=== PATIENT | male | born 1980 | race Caucasian/White ===

== ENCOUNTER 2019-06-19 04:50 | Emergency (ER) | payer BC ==
--- NOTE | 2019-06-19 05:13 | EDM.PDOC ---
ED HPI GENERAL MEDICAL PROBLEM - General Chief Complaint: ENT Problem Stated Complaint: TOOTH PAIN Time Seen by Provider: 06/19/19 04:51 Source of Information: Reports: Patient History Limitations: Reports: No Limitations - History of Present Illness INITIAL COMMENTS - FREE TEXT/NARRATIVE: Is a 38-year-old male. He had a tooth extraction of the #6 tooth. He states last night he felt a pop in that area he may have a little bit of drainage but no bleeding. The pain in his jaw and his right cheek is gotten worse and he went to the walk-in clinic and they placed him on amoxicillin he states he's Jhonny started taking it. He's been trying some Tylenol or ibuprofen as needed for pain but is not helping so he comes to the ER for evaluation. He denies any fever or chills he denies any other acute symptoms. He might have some minimal swelling of that right cheek but there is no erythema noted. Treatments UNDERWRITING MANAGER: Reports: Acetaminophen, NSAIDS Right Upper Jaw Pain Score (Numeric/FACES): 10 - Related Data Allergies Allergy/AdvReac Type Severity Reaction Status Date / Time cefaclor [From [facility]] Allergy Rash Verified 06/19/19 04:56 Home Meds: Home Meds Amoxicillin 500 mg PO 06/19/19 [History] traMADol [Ultram] 50 mg PO Q6H PRN #10 tab 06/19/19 [Rx] Past Medical History - Past Health History Medical/Surgical History: Denies Medical/Surgical History Social & Family History - Tobacco Use Smoking Status *Q: Unknown Ever Smoked ED ROS ENT - Review of Systems Review Of Systems: See Below Constitutional: Denies: Fever, Chills HEENT: Reports: Dental Pain Respiratory: Reports: No Symptoms Cardiovascular: Reports: No Symptoms Endocrine: Reports: No Symptoms GI/Abdominal: Reports: No Symptoms : Reports: No Symptoms Musculoskeletal: Reports: No Symptoms Skin: Reports: No Symptoms Neurological: Reports: No Symptoms Hematologic/Lymphatic: Reports: No Symptoms ED EXAM, ENT - Physical Exam Exam: See Below Exam Limited By: No Limitations General Appearance: Alert, WD/WN, No Apparent Distress Eye Exam: Bilateral Eye: Normal Inspection Ears: Normal External Exam Nose: Normal Inspection Mouth/Throat: Other (#6 to his but extracted, the gum does not appear to be inflamed or swollen, he has some mild tenderness of the right cheek. It is not significantly swollen, there is no significant erythema, no drainage is noted on inspection.) Head: Normocephalic Neck: Supple Respiratory/Chest: No Respiratory Distress Back: Full Range of Motion Extremities: Normal Inspection, Normal Range of Motion Neurological: Alert, Oriented Psychiatric: Normal Affect, Normal Mood Skin: Warm, Dry Course - Vital Signs Last Recorded V/S: Last Vital Signs Temp 97.1 F 06/19/19 04:56 Pulse 50 L 06/19/19 04:56 Resp 16 06/19/19 04:56 BP 141/91 H 06/19/19 04:56 Pulse Ox 100 06/19/19 04:56 Departure - Departure Time of Disposition: 05:13 Disposition: Home, Self-Care 01 Condition: Fair Clinical Impression: Pain, dental, Dental infection History of tooth extraction Qualifiers: Tooth loss class: unspecified tooth loss Qualified Code(s): K08.409 - Partial loss of teeth, unspecified cause, unspecified class - Discharge Information *PRESCRIPTION DRUG MONITORING PROGRAM REVIEWED*: Not Applicable *COPY OF PRESCRIPTION DRUG MONITORING REPORT IN PATIENT CHRISTIAN: Not Applicable Prescriptions: traMADol [Ultram] 50 mg PO Q6H PRN #10 tab PRN Reason: Pain Instructions: Dental Extraction, [id number] Referrals: Scar Quick MD [Primary Care Provider] - Additional Instructions: Continue with the antibiotics until they're finished, use warm soaks to the cheek to help with the soreness, take the tramadol as needed for pain, follow- up with your dentist on Friday if you continue to have symptoms, return to the ER if needed
[2019-06-19] MEDS ORDERED: Ketorolac 60 MG/2 ML SDV IM ONE (05:15)
== END 2019-06-19 05:23 | disposition home or self-care (01) ==
LOC: JD.ED 04:50
DX: K04.7 Periapical abscess without sinus (principal); K08.409 Partial loss of teeth, unspecified cause, unspecified class; Z88.1 Allergy status to other antibiotic agents
CPT/HCPCS: 96372; 99282; J1885; 99283

== ENCOUNTER 2020-07-01 18:18 | Emergency (ER) | payer BC ==
--- NOTE | 2020-07-01 19:24 | EDM.PDOC ---
ED HPI GENERAL MEDICAL PROBLEM - General Chief Complaint: Respiratory Problem Time Seen by Provider: 07/01/20 19:02 Source of Information: Reports: Patient History Limitations: Reports: No Limitations - History of Present Illness INITIAL COMMENTS - FREE TEXT/NARRATIVE: This is a 39-year-old male. He has 3 work partners 2 of them have tested positive for Covid and one is waiting for their test to come back and has quarantined himself. The patient states that over the last 2 to 3 days he has been having shortness of breath, heaviness or tightness in his chest when he breathes, fatigue, productive cough, congestion, and myalgias. He has had no significant nausea vomiting or diarrhea. Comes to the ER because of the fatigue and shortness of breath. His pulse ox on room air when I go into the room is 98%. He does not appear to be in any distress. He does state he has periodic chills and fever but he never has taken his temperature. Generalized Pain Score (Numeric/FACES): 5 - Related Data Allergies Allergy/AdvReac Type Severity Reaction Status Date / Time cefaclor [From [facility]] Allergy Rash Verified 07/01/20 18:43 Home Meds: Home Meds . [No Known Home Meds] 07/01/20 [History] Past Medical History - Past Health History Medical/Surgical History: Denies Medical/Surgical History Social & Family History - Tobacco Use Tobacco Use Status *Q: Former Tobacco User Used Tobacco, but Quit: Yes Month/Year Tobacco Last Used: 12/2019 - Caffeine Use Caffeine Use: Reports: Energy Drinks - Recreational Drug Use Recreational Drug Use: No ED ROS GENERAL - Review of Systems Review Of Systems: See Below Constitutional: Reports: Fever, Chills, Fatigue HEENT: Reports: Rhinitis. Denies: Throat Pain, Throat Swelling Respiratory: Reports: Shortness of Breath, Cough, Sputum. Denies: Wheezing Cardiovascular: Denies: Chest Pain Endocrine: Reports: No Symptoms GI/Abdominal: Denies: Abdominal Pain, Diarrhea, Nausea, Vomiting : Reports: No Symptoms Musculoskeletal: Reports: Other (Myalgias) Skin: Reports: No Symptoms Neurological: Reports: No Symptoms Psychiatric: Reports: No Symptoms Hematologic/Lymphatic: Reports: No Symptoms ED EXAM, GENERAL - Physical Exam Exam: See Below Exam Limited By: No Limitations General Appearance: Alert, WD/WN, No Apparent Distress Eye Exam: Bilateral Eye: Normal Inspection Ears: Normal External Exam Throat/Mouth: Normal Voice, No Airway Compromise Head: Normocephalic Neck: Supple Respiratory/Chest: No Respiratory Distress, Lungs Clear, Normal Breath Sounds. No: Crackles, Rales, Rhonchi, Wheezing Cardiovascular: Regular Rate, Rhythm, No Murmur GI/Abdominal: Soft, Non-Tender Back Exam: Normal Inspection, Full Range of Motion Extremities: Normal Inspection, Normal Range of Motion Neurological: Alert, Oriented Psychiatric: Normal Affect, Normal Mood Skin Exam: Warm, Dry Course - Vital Signs Last Recorded V/S: Last Vital Signs Temp 99.8 F 07/01/20 18:41 Pulse 80 07/01/20 18:41 Resp 20 07/01/20 18:41 BP 136/76 07/01/20 18:41 Pulse Ox 100 07/01/20 18:41 - Orders/Labs/Meds Orders: Active Orders 24 hr Category Date Time Status CXR [Chest 1V Frontal] [CR] Stat Exams 07/01/20 19:19 Taken CORONAVIRUS COVID-19 PCR PHL Stat Lab 07/01/20 20:25 Received Isolation [COMM] Routine Oth 07/01/20 20:37 Ordered Labs: Laboratory Tests 07/01/20 07/01/20 07/01/20 Range/Units 19:40 19:40 19:40 WBC 7.08 (4.23-9.07) K/mm3 RBC 5.94 (4.63-6.08) M/mm3 Hgb 11.4 L (13.7-17.5) gm/dl Hct 36.2 L (40.1-51.0) % MCV 60.9 L (79.0-92.2) fl MCH 19.2 L (25.7-32.2) pg MCHC 31.5 L (32.2-35.5) g/dl RDW Std Deviation 35.8 (35.1-43.9) fL Plt Count 217 (163-337) K/mm3 MPV 10.8 (9.4-12.3) fl Neut % (Auto) 80.9 H (34.0-67.9) % Lymph % (Auto) 5.4 L (21.8-53.1) % Hughes % (Auto) 12.9 H (5.3-12.2) % Eos % (Auto) 0.4 L (0.8-7.0) Baso % (Auto) 0.3 (0.1-1.2) % Neut # (Auto) 5.73 H (1.78-5.38) K/mm3 Lymph # (Auto) 0.38 L (1.32-3.57) K/mm3 Hughes # (Auto) 0.91 H (0.30-0.82) K/mm3 Eos # (Auto) 0.03 L (0.04-0.54) K/mm3 Baso # (Auto) 0.02 (0.01-0.08) K/mm3 Manual Slide Review Abnormal smear Sodium 140 (136-145) mEq/L Potassium 3.9 (3.5-5.1) mEq/L Chloride 104 (98-107) mEq/L Carbon Dioxide 26 (21-32) mEq/L Anion Gap 13.9 (5-15) BUN 9 (7-18) mg/dL Creatinine 1.2 (0.7-1.3) mg/dL Est Cr Clr Drug Dosing 92.51 mL/min Estimated GFR (MDRD) > 60 (>60) mL/min BUN/Creatinine Ratio 7.5 L (14-18) Glucose 112 H (74-106) mg/dL Calcium 8.6 (8.5-10.1) mg/dL Ferritin 182 (26-388) ng/ml Total Bilirubin 1.3 H (0.2-1.0) mg/dL AST 22 (15-37) U/L ALT 31 (16-63) U/L Alkaline Phosphatase 48 (46-116) U/L Lactate Dehydrogenase 188 (85-227) U/L Troponin I < 0.017 (0.00-0.056) ng/mL C-Reactive Protein 1.9 H* (<1.0) mg/dL Total Protein 7.2 (6.4-8.2) g/dl Albumin 4.0 (3.4-5.0) g/dl Globulin 3.2 gm/dL Albumin/Globulin Ratio 1.3 (1-2) - Radiology Interpretation Free Text/Narrative:: Chest x-ray did not show any acute infiltrates. - Re-Assessments/Exams Free Text/Narrative Re-Assessment/Exam: 07/01/20 22:20 I spoke to the patient regarding his test results and his chest x-ray results. Considering the history and his 2 friends that are positive and he is suffering from the same symptoms I believe he is presumptively positive for Covid he is supposed to get his test results back in the next couple of days. In the meantime he needs to quarantine himself at home drink lots of fluids take Tylenol or ibuprofen for the aches and the pains and the fever and sleep a lot. Splane to him that he does not have the flu. Departure - Departure Time of Disposition: 22:21 Disposition: Home, Self-Care 01 Condition: Fair Clinical Impression: Productive cough, Suspected COVID-19 virus infection Fatigue Qualifiers: Fatigue type: unspecified Qualified Code(s): R53.83 - Other fatigue Upper respiratory infection Qualifiers: URI type: unspecified URI Qualified Code(s): J06.9 - Acute upper respiratory infection, unspecified - Discharge Information *PRESCRIPTION DRUG MONITORING PROGRAM REVIEWED*: Not Applicable *COPY OF PRESCRIPTION DRUG MONITORING REPORT IN PATIENT CHRISTIAN: Not Applicable Instructions: COVID-19 Frequently Asked Questions, COVID-19: How to Protect Yourself and Others - [facility] Referrals: Scar Quick MD [Primary Care Provider] - Forms: ED Department Discharge Additional Instructions: Go home and quarantine yourself until you get your Covid test results. Drink lots of fluids even if you do not feel like eating you have to drink fluids, sleep is much as you can because that is when your body heals itself. Take Tylenol or ibuprofen for the fever and the body aches, if your test is positive then you need to quarantine as per the health department because they will call you if it is negative you still have a viral infection so you need to stay away from others. Follow-up with your family doctor for recheck once you are out of quarantine. Sepsis Event Note (ED) - Evaluation Sepsis Screening Result: No Definite Risk - Focused Exam Vital Signs: Vital Signs Temp Pulse Resp BP Pulse Ox 07/01/20 18:41 99.8 F 80 20 136/76 100 - My Orders Last 24 Hours: My Active Orders 07/01/20 19:19 CXR [Chest 1V Frontal] [CR] Stat 07/01/20 20:25 CORONAVIRUS COVID-19 PCR PHL Stat 07/01/20 20:37 Isolation [COMM] Routine - Assessment/Plan Last 24 Hours: My Active Orders 07/01/20 19:19 CXR [Chest 1V Frontal] [CR] Stat 07/01/20 20:25 CORONAVIRUS COVID-19 PCR PHL Stat 07/01/20 20:37 Isolation [COMM] Routine
--- NOTE | 2020-07-03 09:33 | CR ---
PROCEDURE INFORMATION: Exam: XR Chest, 1 View Exam date and time: 07/01/2020 7:25 PM Age: 39 years old Clinical indication: Shortness of breath; Patient HX: SOB, covid like symptoms onset 5 days ago TECHNIQUE: Imaging protocol: XR of the chest Views: 1 view. COMPARISON: No relevant prior studies available. FINDINGS: Lungs: Unremarkable. No consolidation. Pleural space: Unremarkable. No pleural effusion. No pneumothorax. Heart/Mediastinum: Unremarkable. No cardiomegaly. Bones/joints: Unremarkable. IMPRESSION: 1. No acute findings. 2. No lung infiltrates or consolidation. 3. No pleural effusions. Thank you for allowing us to participate in the care of your patient. Dictated and Authenticated by: David Joe MD 07/01/2020 8:57 PM Central Time ([place] & [place]) [facility]ITAL[facility]
== END 2020-07-01 22:35 | disposition home or self-care (01) ==
LOC: JD.ED 18:18
DX: U07.1 COVID-19 (principal); J06.9 Acute upper respiratory infection, unspecified; Z87.891 Personal history of nicotine dependence; Z88.1 Allergy status to other antibiotic agents
CPT/HCPCS: 36415; 71045; 71045-26; 80053; 82728; 83615; 84484; 85025; 86140; 87804; 99282; 99285-25; U0002

== ENCOUNTER 2020-10-13 13:43 | Inpatient (IN) | payer BC ==
[2020-10-13] MEDS ORDERED: Sodium Chloride 0.9% 10 ML Syringe FLUSH PRN ×2 (14:03→14:51)
[2020-10-13] MEDS ORDERED: HYDROmorphone 0.5 MG/0.5 ML Syringe IVPUSH ONE ×2 (14:15→18:45)
[2020-10-13] MEDS ORDERED: Sodium Chloride 0.9% 1,000 ML IV STA (14:15)
[2020-10-13] MEDS ORDERED: Ondansetron 4 MG/2 ML SDV IVPUSH ONE (14:15)
[2020-10-13] MEDS ORDERED: HYDROmorphone 1 MG/ML Syringe IM ONE (14:39)
[2020-10-13] MEDS ORDERED: Iopamidol 612 MG/ML 100 ML Bottle IVPUSH ONE (14:51)
--- NOTE | 2020-10-13 15:52 | CT ---
CT facial bones Multiple axial sections through the facial structures were obtained. Intravenous contrast was utilized. Findings: Diffuse inflammatory change is seen within the left side of the mandible extending into the left cheek and around the left periorbital region and extending partially into the scalp. There are no focal fluid collections being seen to indicate discrete abscess. Submandibular salivary glands and parotid salivary glands appear normal. Minimal mucosal thickening is seen within the right maxillary sinus. Other paranasal sinuses are clear with nothing acute being seen. Mastoid sinuses are without acute abnormality. Bony structures shows nothing acute. Impression: 1. Diffuse left-sided soft tissue swelling as described above. 2. Minimal mucosal thickening within the inferior right maxillary sinus believed to represent minimal chronic finding. 3. No other acute finding is seen. No fluid collections to indicate abscess are seen. Diagnostic code #3
--- NOTE | 2020-10-13 16:26 | EDM.PDOC ---
ED HPI GENERAL MEDICAL PROBLEM - General Chief Complaint: Skin Complaint Stated Complaint: FACIAL SWELLING SENT BY [facility] Time Seen by Provider: 10/13/20 13:56 Source of Information: Reports: Patient, Provider, RN Notes Reviewed History Limitations: Reports: No Limitations - History of Present Illness INITIAL COMMENTS - FREE TEXT/NARRATIVE: Patient is a 39-year-old male sent to the emergency department from his primary care provider, Dr. Bolivar, for evaluation and admission for left-sided facial cellulitis. Admitted at [facility] from October 10 to October 12. At that time he was treated with vancomycin and Unasyn. He was discharged home on Augmentin and an appointment for him to see a dentist at 230 yesterday afternoon. At that visit, they extracted tooth 18 and 19. He continues to have very significant pain and left-sided facial swelling. He is unable to open his left eye or close his mouth due to the soft tissue swelling. He has not taken anything for pain at home. He denies any known fever. He said no nausea or vomiting. Left Face/Facial Pain Score (Numeric/FACES): 10 - Related Data Allergies Allergy/AdvReac Type Severity Reaction Status Date / Time cefaclor [From [facility]] Allergy Rash Verified 10/13/20 21:17 Home Meds: Home Meds . [No Known Home Meds] 07/01/20 [History] Past Medical History - Past Health History Medical/Surgical History: Denies Medical/Surgical History - Infectious Disease History Infectious Disease History: Reports: Novel Coronavirus Social & Family History - Tobacco Use Tobacco Use Status *Q: Former Tobacco User Used Tobacco, but Quit: Yes Month/Year Tobacco Last Used: 03/2020 - Caffeine Use Caffeine Use: Reports: Energy Drinks - Recreational Drug Use Recreational Drug Use: No ED ROS GENERAL - Review of Systems Review Of Systems: See Below Constitutional: Reports: No Symptoms. Denies: Fever, Chills HEENT: Reports: Other (Left facial pain and swelling. Left eye swollen shut. Unable to close mouth. Difficulty speaking.) Respiratory: Reports: No Symptoms Cardiovascular: Reports: No Symptoms Endocrine: Reports: No Symptoms GI/Abdominal: Reports: No Symptoms. Denies: Nausea, Vomiting Musculoskeletal: Reports: No Symptoms Skin: Reports: No Symptoms Neurological: Reports: No Symptoms Psychiatric: Reports: No Symptoms Hematologic/Lymphatic: Reports: No Symptoms Immunologic: Reports: No Symptoms ED EXAM, SKIN/RASH Exam: See Below Exam Limited By: No Limitations General Appearance: Alert, Mild Distress Eye Exam: Bilateral Eye: Other (Extensive soft tissue swelling of the left eye. He is unable to open the eye.) Throat/Mouth: Normal Inspection, Normal Lips, Normal Gums, Normal Oropharynx, Normal Voice, No Airway Compromise, Inflammation (Left cheek), Other (Tooth 24 and 25 extracted. ) Head: Facial Swelling (Significant left-sided facial swelling. Left eye is swollen shut. There is honey crusted drainage below the left eye.), Facial Tenderness (Left) Respiratory/Chest: No Respiratory Distress, Lungs Clear, Normal Breath Sounds, No Accessory Muscle Use, Chest Non-Tender Cardiovascular: Normal Peripheral Pulses, Regular Rate, Rhythm, No Edema, No Gallop, No JVD, No Murmur, No Rub Neurological: Alert, Oriented, CN II-XII Intact, Normal Cognition, Normal Gait, Normal Reflexes, No Motor/Sensory Deficits Psychiatric: Normal Affect, Normal Mood Course - Vital Signs Last Recorded V/S: Last Vital Signs Temp 98.4 F 10/13/20 19:31 Pulse 52 L 10/13/20 19:31 Resp 20 10/13/20 19:31 BP 133/77 10/13/20 19:31 Pulse Ox 100 10/13/20 19:31 - Orders/Labs/Meds Orders: Active Orders 24 hr Category Date Time Status CULTURE BLOOD [BC] Stat Lab 10/13/20 14:40 Received CULTURE BLOOD [BC] Stat Lab 10/13/20 14:47 Received Sodium Chloride 0.9% [Normal Saline] 1,000 ml Med 10/13/20 14:15 Active IV NOW Sodium Chloride 0.9% [Saline Flush] Med 10/13/20 14:03 Active 10 ml FLUSH ASDIRECTED PRN Sodium Chloride 0.9% [Saline Flush] Med 10/13/20 14:51 Active 10 ml FLUSH ONETIME PRN Blood Culture x2 Reflex Set [OM.PC] Stat Oth 10/13/20 14:03 Ordered Peripheral IV Insertion Adult [OM.PC] Stat Oth 10/13/20 14:03 Ordered Medication Orders Acetaminophen (Tylenol) 650 mg RECTAL Q4H PRN PRN Reason: Pain (mild 1-3) Hydrocodone Bitart/Acetaminophen ([place] 325-5 Mg) 2 tab PO Q4H PRN PRN Reason: Pain (moderate 4-6) Albuterol/Ipratropium (Duoneb 3.0-0.5 Mg/3 Ml) 3 ml NEB Q4H PRN PRN Reason: Shortness Of Breath/wheezing Enoxaparin Sodium (Lovenox) 40 mg SUBCUT DAILY [facility] Famotidine (Pepcid) 20 mg PO BID [facility] Last Admin: 10/13/20 20:26 Dose: 20 mg Documented by: JEANNA Hydromorphone HCl (Dilaudid) 0.5 mg IVPUSH Q2H PRN PRN Reason: Pain (severe 7-10) Sodium Chloride (Normal Saline) 1,000 mls @ 100 mls/hr IV NOW STA Stop: 10/14/20 00:14 Last Admin: 10/13/20 15:21 Dose: 100 mls/hr Documented by: MATLROHITH Promethazine HCl 12.5 mg/ (Sodium Chloride) 50.5 mls @ 100 mls/hr IV Q6H PRN PRN Reason: Nausea/Vomiting Piperacillin Sod/Tazobactam (Sod 4.5 gm/ Sodium Chloride) 100 mls @ 25 mls/hr IV Q8H [facility] Vancomycin HCl 1.75 gm/ Sodium (Chloride) 500 mls @ 250 mls/hr IV Q8H [facility] Ketorolac Tromethamine (Toradol) 30 mg IVPUSH Q6H PRN PRN Reason: Pain (moderate 4-6) Stop: 10/22/20 15:01 Naproxen (Naprosyn) 500 mg PO Q12HR [facility] Stop: 10/17/20 09:01 Ondansetron HCl (Zofran) 4 mg IV Q6H PRN PRN Reason: Nausea/Vomiting Polyethylene Glycol (Miralax) 17 gm PO DAILY PRN PRN Reason: Constipation Senna/Docusate Sodium (Senna Plus) 1 tab PO BID PRN PRN Reason: Constipation Sodium Chloride (Saline Flush) 10 ml FLUSH ASDIRECTED PRN PRN Reason: Keep Vein Open Last Admin: 10/13/20 15:22 Dose: 10 ml Documented by: OLIVIER Sodium Chloride (Saline Flush) 10 ml FLUSH ONETIME PRN PRN Reason: IV FLUSH Last Admin: 10/13/20 15:11 Dose: 10 ml Documented by: KEARA Temazepam (Restoril) 15 mg PO BEDTIME PRN PRN Reason: Sleep Vancomycin HCl (Pharmacy To Dose - Vancomycin) 0 dose .XX ONETIME ONE Stop: 10/13/20 21:01 Labs: Laboratory Tests 10/13/20 10/13/20 10/13/20 Range/Units 14:40 14:40 14:40 WBC 7.63 (4.23-9.07) K/mm3 RBC 6.38 H (4.63-6.08) M/mm3 Hgb 12.2 L (13.7-17.5) gm/dl Hct 38.9 L (40.1-51.0) % MCV 61.0 L (79.0-92.2) fl MCH 19.1 L (25.7-32.2) pg MCHC 31.4 L (32.2-35.5) g/dl RDW Std Deviation 36.4 (35.1-43.9) fL Plt Count 229 (163-337) K/mm3 MPV 10.9 (9.4-12.3) fl Neut % (Auto) 64.7 (34.0-67.9) % Lymph % (Auto) 19.8 L (21.8-53.1) % [place] % (Auto) 13.9 H (5.3-12.2) % Eos % (Auto) 1.0 (0.8-7.0) Baso % (Auto) 0.3 (0.1-1.2) % Neut # (Auto) 4.94 (1.78-5.38) K/mm3 Lymph # (Auto) 1.51 (1.32-3.57) K/mm3 [place] # (Auto) 1.06 H (0.30-0.82) K/mm3 Eos # (Auto) 0.08 (0.04-0.54) K/mm3 Baso # (Auto) 0.02 (0.01-0.08) K/mm3 Manual Slide Review Abnormal smear Sodium 142 (136-145) mEq/L Potassium 3.8 (3.5-5.1) mEq/L Chloride 105 (98-107) mEq/L Carbon Dioxide 27 (21-32) mEq/L Anion Gap 13.8 (5-15) BUN 9 (7-18) mg/dL Creatinine 0.9 (0.7-1.3) mg/dL Est Cr Clr Drug Dosing 123.35 mL/min Estimated GFR (MDRD) > 60 (>60) mL/min BUN/Creatinine Ratio 10.0 L (14-18) Glucose 103 (74-106) mg/dL Lactic Acid 1.2 (0.4-2.0) mmol/L Calcium 8.6 (8.5-10.1) mg/dL Total Bilirubin 1.8 H (0.2-1.0) mg/dL AST 32 (15-37) U/L ALT 71 H (16-63) U/L Alkaline Phosphatase 58 (46-116) U/L C-Reactive Protein 3.4 H* (<1.0) mg/dL Total Protein 8.0 (6.4-8.2) g/dl Albumin 4.0 (3.4-5.0) g/dl Globulin 4.0 gm/dL Albumin/Globulin Ratio 1.0 (1-2) Meds: Medications Generic Name Dose Route Start Last Admin Trade Name Freq PRN Reason Stop Dose Admin Acetaminophen 650 mg 10/13/20 19:55 Tylenol RECTAL Q4H PRN Pain (mild 1-3) Hydrocodone Bitart/Acetaminophen 2 tab 10/13/20 19:55 [place] 325-5 Mg PO Q4H PRN Pain (moderate 4-6) Albuterol/Ipratropium 3 ml 10/13/20 19:55 Duoneb 3.0-0.5 Mg/3 Ml NEB Q4H PRN Shortness Of Breath/wheezing Enoxaparin Sodium 40 mg 10/14/20 09:00 Lovenox SUBCUT DAILY [facility] Famotidine 20 mg 10/13/20 21:00 10/13/20 20:26 Pepcid PO 20 mg BID [facility] Administration Hydromorphone HCl 0.5 mg 10/13/20 19:55 Dilaudid IVPUSH Q2H PRN Pain (severe 7-10) Sodium Chloride 1,000 mls @ 100 mls/hr 10/13/20 14:15 10/13/20 15:21 Normal Saline IV 10/14/20 00:14 100 mls/hr NOW STA Administration Promethazine HCl 12.5 mg/ 50.5 mls @ 100 mls/hr 10/13/20 19:55 Sodium Chloride IV Q6H PRN Nausea/Vomiting Piperacillin Sod/Tazobactam 100 mls @ 25 mls/hr 10/14/20 01:00 Sod 4.5 gm/ Sodium Chloride IV Q8H [facility] Vancomycin HCl 1.75 gm/ Sodium 500 mls @ 250 mls/hr 10/14/20 01:00 Chloride IV Q8H [facility] Ketorolac Tromethamine 30 mg 10/17/20 15:00 Toradol IVPUSH 10/22/20 15:01 Q6H PRN Pain (moderate 4-6) Naproxen 500 mg 10/14/20 09:00 Naprosyn PO 10/17/20 09:01 Q12HR [facility] Ondansetron HCl 4 mg 10/13/20 19:55 Zofran IV Q6H PRN Nausea/Vomiting Polyethylene Glycol 17 gm 10/13/20 19:55 Miralax PO DAILY PRN Constipation Senna/Docusate Sodium 1 tab 10/13/20 19:55 Senna Plus PO BID PRN Constipation Sodium Chloride 10 ml 10/13/20 14:03 10/13/20 15:22 Saline Flush FLUSH 10 ml ASDIRECTED PRN Administration Keep Vein Open Sodium Chloride 10 ml 10/13/20 14:51 10/13/20 15:11 Saline Flush FLUSH 10 ml ONETIME PRN Administration IV FLUSH Temazepam 15 mg 10/13/20 19:55 Restoril PO BEDTIME PRN Sleep Vancomycin HCl 0 dose 10/13/20 21:00 Pharmacy To Dose - Vancomycin .XX 10/13/20 21:01 ONETIME ONE Discontinued Medications Generic Name Dose Route Start Last Admin Trade Name Freq PRN Reason Stop Dose Admin Hydromorphone HCl 0.5 mg 10/13/20 14:15 10/13/20 15:10 Dilaudid IVPUSH 10/13/20 14:16 Not Given ONETIME ONE Hydromorphone HCl 1 mg 10/13/20 14:39 10/13/20 14:43 Dilaudid IM 10/13/20 14:40 1 mg ONETIME ONE Administration Hydromorphone HCl 0.5 mg 10/13/20 18:45 10/13/20 18:49 Dilaudid IVPUSH 10/13/20 18:46 0.5 mg ONETIME ONE Administration Piperacillin Sod/Tazobactam 100 mls @ 200 mls/hr 10/13/20 16:30 10/13/20 16:35 Sod 4.5 gm/ Sodium Chloride IV 10/13/20 16:59 200 mls/hr ONETIME ONE Administration Vancomycin HCl 2 gm/ Sodium 500 mls @ 250 mls/hr 10/13/20 17:00 10/13/20 17:09 Chloride IV 10/13/20 18:59 250 mls/hr ONETIME ONE Administration Vancomycin HCl 1 gm/ Sodium 250 mls @ 250 mls/hr 10/14/20 09:00 Chloride IV Q12H [facility] Ibuprofen 400 mg 10/13/20 19:55 Motrin PO Q6H PRN Pain (mild 1-3) Iopamidol 100 ml 10/13/20 14:51 10/13/20 15:11 Isovue-300 (61%) IVPUSH 10/13/20 14:52 100 ml ONETIME ONE Administration Naproxen 500 mg 10/13/20 20:01 10/13/20 20:26 Naprosyn PO 10/13/20 20:02 500 mg ONETIME ONE Administration Ondansetron HCl 4 mg 10/13/20 14:15 10/13/20 15:09 Zofran IVPUSH 10/13/20 14:16 Not Given ONETIME ONE Vancomycin HCl 0 dose 10/13/20 16:31 10/13/20 17:23 Pharmacy To Dose - Vancomycin .XX 10/13/20 16:32 Not Given ONETIME ONE - Re-Assessments/Exams Free Text/Narrative Re-Assessment/Exam: Patient is a 39-year-old male presenting to the emergency department from the [facility] for evaluation admission with regards to facial cellulitis. He was recently discharged from the hospital in [place]. He had tooth 24 and 25 pulled yesterday but the pain is still quite significant and he is unable to open his left eye or close his mouth due to the pain. I have ordered blood work and maxillofacial CT. We will give him Dilaudid 0.5 mg IV as well as Zofran 4 mg IV. 10/13/20 1440 Nursing staff reports that they are having difficulty obtaining IV access and patient is quite uncomfortable. We will switch his Dilaudid to 1 mg of IM Dilaudid pending IV insertion. 10/13/20 16:37 Hematology was significant for hemoglobin low at 12.2, CRP 3.4. Maxillofacial CT as follows: 1. Diffuse left-sided soft tissue swelling as described above. 2. Minimal mucosal thickening within the inferior right maxillary sinus believed to represent minimal chronic findings. 3. No other acute findings are seen. No fluid collections to indicate abscess are seen. Medical records were obtained from [place]. They also had completed a maxillofacial CT which at that time did show multiple periapical abscesses, specifically below tooth 24 and 25. Radiologist recommended dental follow-up. Patient did have these teeth pulled, therefore these abscesses have resolved, however he does still have significant soft tissue swelling and pain related to the infection. I have ordered vancomycin and Zosyn to be started. I left a message for the hospitalist to discuss admission. Patient's pain is now well controlled after the Dilaudid 1 mg IM. Departure - Departure Time of Disposition: 16:40 Disposition: Admitted As Inpatient 66 Condition: Good Clinical Impression: Dental infection, Facial cellulitis History of tooth extraction Qualifiers: Tooth loss class: unspecified tooth loss Qualified Code(s): K08.409 - Partial loss of teeth, unspecified cause, unspecified class - Discharge Information Sepsis Event Note (ED) - Evaluation Sepsis Screening Result: No Definite Risk - Focused Exam Vital Signs: Vital Signs Temp Pulse Resp BP Pulse Ox 10/13/20 14:00 97.6 F 60 14 138/80 97 - My Orders Last 24 Hours: My Active Orders 10/13/20 14:03 Sodium Chloride 0.9% [Saline Flush] 10 ml FLUSH ASDIRECTED PRN Blood Culture x2 Reflex Set [OM.PC] Stat Peripheral IV Insertion Adult [OM.PC] Stat 10/13/20 14:15 Sodium Chloride 0.9% [Normal Saline] 1,000 ml IV NOW 10/13/20 14:40 CULTURE BLOOD [BC] Stat 10/13/20 14:47 CULTURE BLOOD [BC] Stat 10/13/20 14:51 Sodium Chloride 0.9% [Saline Flush] 10 ml FLUSH ONETIME PRN - Assessment/Plan Last 24 Hours: My Active Orders 10/13/20 14:03 Sodium Chloride 0.9% [Saline Flush] 10 ml FLUSH ASDIRECTED PRN Blood Culture x2 Reflex Set [OM.PC] Stat Peripheral IV Insertion Adult [OM.PC] Stat 10/13/20 14:15 Sodium Chloride 0.9% [Normal Saline] 1,000 ml IV NOW 10/13/20 14:40 CULTURE BLOOD [BC] Stat 10/13/20 14:47 CULTURE BLOOD [BC] Stat 10/13/20 14:51 Sodium Chloride 0.9% [Saline Flush] 10 ml FLUSH ONETIME PRN
[2020-10-13] MEDS ORDERED: Piperacillin/Tazobactam 4.5 GM in Sodium Chloride 0.9% 100 ML IV ONE (16:30)
[2020-10-13] MEDS ORDERED: Vancomycin 2 GM in Sodium Chloride 0.9% 500 ML IV ONE (17:00)
--- NOTE | 2020-10-13 19:16 | PCM.HP.2 ---
H&P History of Present Illness - General Date of Service: 10/13/20 Admit Problem/Dx: Admission Diagnosis/Problem Admission Diagnosis/Problem Cellulitis and abscess of face Source of Information: Patient, Provider, RN Notes Reviewed History Limitations: Reports: No Limitations - History of Present Illness Initial Comments - Free Text/Narative: This is a 39 yo white male with no past medical hx/o who presents to ED with worsening facial infection. He states he was seen in [place] and was admitted for facial cellulitis with tooth abscess on October 10 treated with IV Vancomycin and Unasyn. He was released after a couple of days. He was sent home with Augmentin and was referred to a local dentist for tooth extraction. He had his infected teeth (18 and 19th on left lower jaw) taken out yesterday. However he continues to get worse with significant pain and more left sided facial edema. He states he is now unable to open his left eye or close his mouth completely due to facial edema. He denies having fever or chills. He is still able to eat and drink. He was initially seen at [facility] today but was sent to ED for urgent evaluation. His initial work up in ED shows a CBC remarkable for RBC of 6.38, Hgb of 12.2, Hct of 38.9, MCV of 61, MCH of 19.1, MCHC of 31.4, Lymphocytes of 19.8% and Monocytes of 13.9%. His chemistry is significant for total bilirubin of 1.8, ALT of 71 and CRP of 3.4. His Covid 19 test is negative. His vital signs are stable. His facial CT scan report read as diffuse left sided soft tissue swelling. Minimal mucosal thickening within the inferior right maxillary sinus felt to be chronic in finding. No other acute finding is seen. Patient received initial treatment in ED before coming in to the floor for further treatment of worsening facial cellulitis. Left Face/Facial Pain Score (Numeric/FACES): 10 - Related Data Allergies/Adverse Reactions: Allergies Allergy/AdvReac Type Severity Reaction Status Date / Time cefaclor [From [facility]] Allergy Rash Verified 10/13/20 21:17 Home Medications: Home Meds . [No Known Home Meds] 07/01/20 [History] Past Medical History - Past Health History Medical/Surgical History: Denies Medical/Surgical History - Infectious Disease History Infectious Disease History: Reports: Novel Coronavirus Social & Family History - Tobacco Use Tobacco Use Status *Q: Former Tobacco User Used Tobacco, but Quit: Yes Month/Year Tobacco Last Used: 03/2020 - Caffeine Use Caffeine Use: Reports: Energy Drinks - Recreational Drug Use Recreational Drug Use: No H&P Review of Systems - Review of Systems: Review Of Systems: See Below General: Denies: Fever, Chills, Malaise, Weakness, Fatigue, Decreased Appetite HEENT: Reports: Ear Pain, Other (left sided facial edema). Denies: Contact Lenses, Sinus Congestion, Visual Changes Pulmonary: Denies: Shortness of Breath, Pleuritic Chest Pain, Cough Cardiovascular: Denies: Chest Pain Gastrointestinal: Denies: Abdominal Pain, Vomiting Genitourinary: Denies: Dysuria Musculoskeletal: Denies: Joint Pain Skin: Reports: Erythema, Change in Color, Lesions (left side face). Denies: Cyanosis, Mottled, Bruising, Burn(s) Psychiatric: Denies: Confusion, Depression, Hallucinations Neurological: Denies: Confusion, Difficulty Walking, Weakness, Gait Disturbance Hematologic/Lymphatic: Reports: No Symptoms Immunologic: Reports: No Symptoms Exam - Exam Exam: See Below - Vital Signs Vital Signs: Last Vital Signs Temp 36.4 C 10/13/20 14:00 Pulse 60 10/13/20 14:00 Resp 14 10/13/20 14:00 BP 138/80 10/13/20 14:00 Pulse Ox 97 10/13/20 14:00 Weight: 121.109 kg - Exam General: Alert, Oriented, Cooperative, Other (Obese). No: Mild Distress HEENT: Conjunctiva Clear, EACs Clear, Hearing Intact, Mucosa Moist & [place], Nares Patent, Normal Nasal Septum, Posterior Pharynx Clear, TMs Clear, Other (left eye completely shut due to edema; right eye vision is intact) Neck: Supple, Trachea Midline, Full Range of Motion, Lymphadenopathy Lungs: Clear to Auscultation, Normal Respiratory Effort Cardiovascular: Regular Rate, Regular Rhythm GI/Abdominal Exam: Normal Bowel Sounds, Non-Tender, No Organomegaly, No Distention, No Abnormal Bruit, Other (Obese) (Male) Exam: Deferred Rectal (Males) Exam: Deferred Back Exam: Normal Inspection, Decreased Range of Motion Extremities: Normal Inspection, Normal Range of Motion, Non-Tender, No Pedal Edema, Normal Capillary Refill Peripheral Pulses: 2+: Dorsalis Pedis (L), Dorsalis Pedis (R) Skin: Warm, Dry, Intact Skin Alteration Location (Drawings Not To Scale): 1 - ed sores with blisters around his nose, mouth, side burn and on his temporal region. open sores looks like honey colored crusts Neuro Extensive - Mental Status: Oriented x3, Normal Cognition, Memory Intact Neuro Extensive - Motor, Sensory, Reflexes: CN II-XII Intact, Normal Gait Psychiatric: Alert, Normal Affect, Normal Mood - Patient Data Lab Results Last 24 hrs: Laboratory Results - last 24 hr 10/13/20 10/13/20 10/13/20 Range/Units 14:40 14:40 14:40 WBC 7.63 (4.23-9.07) K/mm3 RBC 6.38 H (4.63-6.08) M/mm3 Hgb 12.2 L (13.7-17.5) gm/dl Hct 38.9 L (40.1-51.0) % MCV 61.0 L (79.0-92.2) fl MCH 19.1 L (25.7-32.2) pg MCHC 31.4 L (32.2-35.5) g/dl RDW Std Deviation 36.4 (35.1-43.9) fL Plt Count 229 (163-337) K/mm3 MPV 10.9 (9.4-12.3) fl Neut % (Auto) 64.7 (34.0-67.9) % Lymph % (Auto) 19.8 L (21.8-53.1) % [place] % (Auto) 13.9 H (5.3-12.2) % Eos % (Auto) 1.0 (0.8-7.0) Baso % (Auto) 0.3 (0.1-1.2) % Neut # (Auto) 4.94 (1.78-5.38) K/mm3 Lymph # (Auto) 1.51 (1.32-3.57) K/mm3 [place] # (Auto) 1.06 H (0.30-0.82) K/mm3 Eos # (Auto) 0.08 (0.04-0.54) K/mm3 Baso # (Auto) 0.02 (0.01-0.08) K/mm3 Manual Slide Review Abnormal smear Sodium 142 (136-145) mEq/L Potassium 3.8 (3.5-5.1) mEq/L Chloride 105 (98-107) mEq/L Carbon Dioxide 27 (21-32) mEq/L Anion Gap 13.8 (5-15) BUN 9 (7-18) mg/dL Creatinine 0.9 (0.7-1.3) mg/dL Est Cr Clr Drug Dosing 123.35 mL/min Estimated GFR (MDRD) > 60 (>60) mL/min BUN/Creatinine Ratio 10.0 L (14-18) Glucose 103 (74-106) mg/dL Lactic Acid 1.2 (0.4-2.0) mmol/L Calcium 8.6 (8.5-10.1) mg/dL Total Bilirubin 1.8 H (0.2-1.0) mg/dL AST 32 (15-37) U/L ALT 71 H (16-63) U/L Alkaline Phosphatase 58 (46-116) U/L C-Reactive Protein 3.4 H* (<1.0) mg/dL Total Protein 8.0 (6.4-8.2) g/dl Albumin 4.0 (3.4-5.0) g/dl Globulin 4.0 gm/dL Albumin/Globulin Ratio 1.0 (1-2) SARS-CoV-2 RNA (GIOVANNI) (NEGATIVE) 10/13/20 Range/Units 17:49 WBC (4.23-9.07) K/mm3 RBC (4.63-6.08) M/mm3 Hgb (13.7-17.5) gm/dl Hct (40.1-51.0) % MCV (79.0-92.2) fl MCH (25.7-32.2) pg MCHC (32.2-35.5) g/dl RDW Std Deviation (35.1-43.9) fL Plt Count (163-337) K/mm3 MPV (9.4-12.3) fl Neut % (Auto) (34.0-67.9) % Lymph % (Auto) (21.8-53.1) % [place] % (Auto) (5.3-12.2) % Eos % (Auto) (0.8-7.0) Baso % (Auto) (0.1-1.2) % Neut # (Auto) (1.78-5.38) K/mm3 Lymph # (Auto) (1.32-3.57) K/mm3 [place] # (Auto) (0.30-0.82) K/mm3 Eos # (Auto) (0.04-0.54) K/mm3 Baso # (Auto) (0.01-0.08) K/mm3 Manual Slide Review Sodium (136-145) mEq/L Potassium (3.5-5.1) mEq/L Chloride (98-107) mEq/L Carbon Dioxide (21-32) mEq/L Anion Gap (5-15) BUN (7-18) mg/dL Creatinine (0.7-1.3) mg/dL Est Cr Clr Drug Dosing mL/min Estimated GFR (MDRD) (>60) mL/min BUN/Creatinine Ratio (14-18) Glucose (74-106) mg/dL Lactic Acid (0.4-2.0) mmol/L Calcium (8.5-10.1) mg/dL Total Bilirubin (0.2-1.0) mg/dL AST (15-37) U/L ALT (16-63) U/L Alkaline Phosphatase (46-116) U/L C-Reactive Protein (<1.0) mg/dL Total Protein (6.4-8.2) g/dl Albumin (3.4-5.0) g/dl Globulin gm/dL Albumin/Globulin Ratio (1-2) SARS-CoV-2 RNA (GIOVANNI) Negative (NEGATIVE) Result Diagrams: 10/14/20 06:20 10/14/20 06:20 Sepsis Event Note - Evaluation Sepsis Screening Result: No Definite Risk - Focused Exam Vital Signs: Vital Signs Temp Pulse Resp BP Pulse Ox 10/13/20 14:00 36.4 C 60 14 138/80 97 Problem List Initiated/Reviewed/Updated: Yes Orders Last 24hrs: Active Orders 24 hr Category Date Time Status Admission Status [Patient Status] [ADT] Routine ADT 10/13/20 17:27 Active Peripheral IV Care [RC] . DIRECTED Care 10/13/20 14:03 Active CULTURE BLOOD [BC] Stat Lab 10/13/20 14:40 Received CULTURE BLOOD [BC] Stat Lab 10/13/20 14:47 Received Sodium Chloride 0.9% [Normal Saline] 1,000 ml Med 10/13/20 14:15 Active IV NOW Sodium Chloride 0.9% [Saline Flush] Med 10/13/20 14:03 Active 10 ml FLUSH ASDIRECTED PRN Sodium Chloride 0.9% [Saline Flush] Med 10/13/20 14:51 Active 10 ml FLUSH ONETIME PRN Blood Culture x2 Reflex Set [OM.PC] Stat Oth 10/13/20 14:03 Ordered Peripheral IV Insertion Adult [OM.PC] Stat Oth 10/13/20 14:03 Ordered Medication Orders Sodium Chloride (Normal Saline) 1,000 mls @ 100 mls/hr IV NOW STA Stop: 10/14/20 00:14 Last Admin: 10/13/20 15:21 Dose: 100 mls/hr Documented by: MATLBIL Sodium Chloride (Saline Flush) 10 ml FLUSH ASDIRECTED PRN PRN Reason: Keep Vein Open Last Admin: 10/13/20 15:22 Dose: 10 ml Documented by: MATLBIL Sodium Chloride (Saline Flush) 10 ml FLUSH ONETIME PRN PRN Reason: IV FLUSH Last Admin: 10/13/20 15:11 Dose: 10 ml Documented by: KEARA Assessment/Plan Comment:: This is a 39 yo white male with no past medical hx/o who presents to ED with wo rsening facial infection. He states he was seen in [place] and was admitted for facial cellulitis with tooth abscess on October 10 treated with IV Vancomycin and Unasyn. Assessment: Acute: Left Sided Facial Edema and Cellulitis/SSTI DDX: Staph infection/Impetigo Microcytic Hypochromic Anemia with Hgb of 12.2 grams Elevated Total Bilirubin of 1.8 Elevated ALT of 71 Elevated CRP of 3.4 Class II Obese Chronic: Obesity Plan: [facility] Monitor for Sepsis. Continue IV Vancomycin and Zosyn for pharmacy to dose. Regular diet. Ice pack to apply at the affected face QID to reduce swelling. Naproxen 500 mg po BID for inflammation. PRN pain medication. Wound culture. Aspiration precaution. DVT/GI Prophylaxis. Code status is full. - Mortality Measure Prognosis:: Good
[2020-10-13] MEDS ORDERED: Ibuprofen 400 MG Tab PO PRN (19:55)
[2020-10-13] MEDS ORDERED: Polyethylene Glycol 3350 Powder 17 GM Packet PO PRN (19:55)
[2020-10-13] MEDS ORDERED: Albuterol/Ipratropium 3.0-0.5 MG/3 ML Neb Soln NEB PRN (19:55)
[2020-10-13] MEDS ORDERED: Acetaminophen 650 MG Supp RECTAL PRN (19:55)
[2020-10-13] MEDS ORDERED: Promethazine 12.5 MG in Sodium Chloride 0.9% 50 ML IV PRN (19:55)
[2020-10-13] MEDS ORDERED: Ondansetron 4 MG/2 ML SDV IV PRN (19:55)
[2020-10-13] MEDS ORDERED: HYDROmorphone 0.5 MG/0.5 ML Syringe IVPUSH PRN (19:55)
[2020-10-13] MEDS ORDERED: Temazepam 15 MG Cap PO PRN (19:55)
[2020-10-13] MEDS ORDERED: Naproxen 500 MG Tab PO ONE (20:01)
[2020-10-13] MEDS: Famotidine 20 MG Tab PO SCH (20:26)
[2020-10-14] MEDS: Acetaminophen/HYDROcodone 325-5 MG Tab PO PRN ×4 (00:41→21:16)
[2020-10-14] MEDS ORDERED: Vancomycin 1.75 GM in Sodium Chloride 0.9% 500 ML IV SCH (01:00)
[2020-10-14] MEDS ORDERED: Piperacillin/Tazobactam 4.5 GM in Sodium Chloride 0.9% 100 ML IV SCH (01:00)
[2020-10-14] MEDS: Piperacillin/Tazobactam 4.5 GM in Sodium Chloride 0.9% 100 ML IV SCH ×3 (03:35→18:13)
[2020-10-14] MEDS: Enoxaparin 40 MG/0.4 ML Syringe SUBCUT SCH (08:13)
[2020-10-14] MEDS: Famotidine 20 MG Tab PO SCH ×2 (08:13→21:16)
[2020-10-14] MEDS: Naproxen 500 MG Tab PO SCH ×2 (08:13→21:16)
--- NOTE | 2020-10-14 08:22 | PCM.PN ---
- General Info Date of Service: 10/14/20 Admission Dx/Problem (Free Text): Admission Diagnosis/Problem Admission Diagnosis/Problem Cellulitis and abscess of face Subjective Update: No overnight or acute issues. He looks much better this morning. He has no complaints. He is afebrile w/o leukocytosis. Functional Status: Reports: Pain Controlled, Tolerating Diet, Ambulating, Urinating. Denies: New Symptoms - Review of Systems General: Denies: Fever, Weakness, Fatigue, Malaise, Chills HEENT: Reports: No Symptoms Pulmonary: Denies: Shortness of Breath, Cough Cardiovascular: Denies: Chest Pain Gastrointestinal: Denies: Abdominal Pain, Decreased Appetite, Difficulty Swallowing, Nausea, Vomiting Genitourinary: Denies: Frequency Musculoskeletal: Reports: No Symptoms Skin: Denies: Cyanosis, Jaundice, Mottled, Pallor Neurological: Denies: Confusion, Difficulty Walking, Gait Disturbance Psychiatric: Denies: Depression, Anxiety, Agitation, Hallucinations, Suicidal Ideation - Patient Data Vitals - Most Recent: Last Vital Signs Temp 36.8 C 10/14/20 07:29 Pulse 53 L 10/14/20 07:29 Resp 16 10/14/20 07:29 BP 149/97 H 10/14/20 07:29 Pulse Ox 99 10/14/20 07:29 Weight - Most Recent: 120.928 kg I&O - Last 24 Hours: Intake & Output 10/13/20 10/14/20 10/14/20 22:59 06:59 14:59 Intake Total 400 Balance 400 Lab Results Last 24 Hours: Laboratory Results - last 24 hr 10/13/20 10/13/20 10/13/20 Range/Units 14:40 14:40 14:40 WBC 7.63 (4.23-9.07) K/mm3 RBC 6.38 H (4.63-6.08) M/mm3 Hgb 12.2 L (13.7-17.5) gm/dl Hct 38.9 L (40.1-51.0) % MCV 61.0 L (79.0-92.2) fl MCH 19.1 L (25.7-32.2) pg MCHC 31.4 L (32.2-35.5) g/dl RDW Std Deviation 36.4 (35.1-43.9) fL Plt Count 229 (163-337) K/mm3 MPV 10.9 (9.4-12.3) fl Neut % (Auto) 64.7 (34.0-67.9) % Lymph % (Auto) 19.8 L (21.8-53.1) % [place] % (Auto) 13.9 H (5.3-12.2) % Eos % (Auto) 1.0 (0.8-7.0) Baso % (Auto) 0.3 (0.1-1.2) % Neut # (Auto) 4.94 (1.78-5.38) K/mm3 Lymph # (Auto) 1.51 (1.32-3.57) K/mm3 [place] # (Auto) 1.06 H (0.30-0.82) K/mm3 Eos # (Auto) 0.08 (0.04-0.54) K/mm3 Baso # (Auto) 0.02 (0.01-0.08) K/mm3 Manual Slide Review Abnormal smear Sodium 142 (136-145) mEq/L Potassium 3.8 (3.5-5.1) mEq/L Chloride 105 (98-107) mEq/L Carbon Dioxide 27 (21-32) mEq/L Anion Gap 13.8 (5-15) BUN 9 (7-18) mg/dL Creatinine 0.9 (0.7-1.3) mg/dL Est Cr Clr Drug Dosing 123.35 mL/min Estimated GFR (MDRD) > 60 (>60) mL/min BUN/Creatinine Ratio 10.0 L (14-18) Glucose 103 (74-106) mg/dL Lactic Acid 1.2 (0.4-2.0) mmol/L Calcium 8.6 (8.5-10.1) mg/dL Magnesium (1.8-2.4) mg/dl Total Bilirubin 1.8 H (0.2-1.0) mg/dL AST 32 (15-37) U/L ALT 71 H (16-63) U/L Alkaline Phosphatase 58 (46-116) U/L C-Reactive Protein 3.4 H* (<1.0) mg/dL Total Protein 8.0 (6.4-8.2) g/dl Albumin 4.0 (3.4-5.0) g/dl Globulin 4.0 gm/dL Albumin/Globulin Ratio 1.0 (1-2) SARS-CoV-2 RNA (GIOVANNI) (NEGATIVE) 10/13/20 10/14/20 10/14/20 Range/Units 17:49 06:20 06:20 WBC 6.67 (4.23-9.07) K/mm3 RBC 5.53 (4.63-6.08) M/mm3 Hgb 10.9 L (13.7-17.5) gm/dl Hct 34.1 L (40.1-51.0) % MCV 61.7 L (79.0-92.2) fl MCH 19.7 L (25.7-32.2) pg MCHC 32.0 L (32.2-35.5) g/dl RDW Std Deviation 36.6 (35.1-43.9) fL Plt Count 203 (163-337) K/mm3 MPV 11.1 (9.4-12.3) fl Neut % (Auto) 52.9 (34.0-67.9) % Lymph % (Auto) 31.3 (21.8-53.1) % [place] % (Auto) 13.0 H (5.3-12.2) % Eos % (Auto) 2.1 (0.8-7.0) Baso % (Auto) 0.7 (0.1-1.2) % Neut # (Auto) 3.52 (1.78-5.38) K/mm3 Lymph # (Auto) 2.09 (1.32-3.57) K/mm3 [place] # (Auto) 0.87 H (0.30-0.82) K/mm3 Eos # (Auto) 0.14 (0.04-0.54) K/mm3 Baso # (Auto) 0.05 (0.01-0.08) K/mm3 Manual Slide Review Not Reportable Sodium 140 (136-145) mEq/L Potassium 3.8 (3.5-5.1) mEq/L Chloride 106 (98-107) mEq/L Carbon Dioxide 27 (21-32) mEq/L Anion Gap 10.8 (5-15) BUN 10 (7-18) mg/dL Creatinine 1.0 (0.7-1.3) mg/dL Est Cr Clr Drug Dosing 111.01 mL/min Estimated GFR (MDRD) > 60 (>60) mL/min BUN/Creatinine Ratio 10.0 L (14-18) Glucose 108 H (74-106) mg/dL Lactic Acid (0.4-2.0) mmol/L Calcium 8.3 L (8.5-10.1) mg/dL Magnesium 2.1 (1.8-2.4) mg/dl Total Bilirubin (0.2-1.0) mg/dL AST (15-37) U/L ALT (16-63) U/L Alkaline Phosphatase (46-116) U/L C-Reactive Protein 2.0 H* (<1.0) mg/dL Total Protein (6.4-8.2) g/dl Albumin (3.4-5.0) g/dl Globulin gm/dL Albumin/Globulin Ratio (1-2) SARS-CoV-2 RNA (GIOVANNI) Negative (NEGATIVE) Med Orders - Current: Current Medications Acetaminophen (Tylenol) 650 mg RECTAL Q4H PRN PRN Reason: Pain (mild 1-3) Hydrocodone Bitart/Acetaminophen ([place] 325-5 Mg) 2 tab PO Q4H PRN PRN Reason: Pain (moderate 4-6) Last Admin: 10/14/20 06:07 Dose: 2 tab Documented by: Albuterol/Ipratropium (Duoneb 3.0-0.5 Mg/3 Ml) 3 ml NEB Q4H PRN PRN Reason: Shortness Of Breath/wheezing Enoxaparin Sodium (Lovenox) 40 mg SUBCUT DAILY [facility] Last Admin: 10/14/20 08:13 Dose: 40 mg Documented by: Famotidine (Pepcid) 20 mg PO BID [facility] Last Admin: 10/14/20 08:13 Dose: 20 mg Documented by: Hydromorphone HCl (Dilaudid) 0.5 mg IVPUSH Q2H PRN PRN Reason: Pain (severe 7-10) Last Admin: 10/14/20 00:42 Dose: 0.5 mg Documented by: Promethazine HCl 12.5 mg/ (Sodium Chloride) 50.5 mls @ 100 mls/hr IV Q6H PRN PRN Reason: Nausea/Vomiting Piperacillin Sod/Tazobactam (Sod 4.5 gm/ Sodium Chloride) 100 mls @ 25 mls/hr IV Q8H [facility] Last Admin: 10/14/20 03:35 Dose: 25 mls/hr Documented by: Vancomycin HCl 1.75 gm/ Sodium (Chloride) 500 mls @ 250 mls/hr IV Q8H [facility] Ketorolac Tromethamine (Toradol) 30 mg IVPUSH Q6H PRN PRN Reason: Pain (moderate 4-6) Stop: 10/22/20 15:01 Naproxen (Naprosyn) 500 mg PO Q12HR [facility] Stop: 10/17/20 09:01 Last Admin: 10/14/20 08:13 Dose: 500 mg Documented by: Ondansetron HCl (Zofran) 4 mg IV Q6H PRN PRN Reason: Nausea/Vomiting Polyethylene Glycol (Miralax) 17 gm PO DAILY PRN PRN Reason: Constipation Senna/Docusate Sodium (Senna Plus) 1 tab PO BID PRN PRN Reason: Constipation Sodium Chloride (Saline Flush) 10 ml FLUSH ASDIRECTED PRN PRN Reason: Keep Vein Open Last Admin: 10/13/20 15:22 Dose: 10 ml Documented by: Sodium Chloride (Saline Flush) 10 ml FLUSH ONETIME PRN PRN Reason: IV FLUSH Last Admin: 10/13/20 15:11 Dose: 10 ml Documented by: Temazepam (Restoril) 15 mg PO BEDTIME PRN PRN Reason: Sleep Last Admin: 10/14/20 00:41 Dose: 15 mg Documented by: Discontinued Medications Hydromorphone HCl (Dilaudid) 0.5 mg IVPUSH ONETIME ONE Stop: 10/13/20 14:16 Last Admin: 10/13/20 15:10 Dose: Not Given Documented by: Hydromorphone HCl (Dilaudid) 1 mg IM ONETIME ONE Stop: 10/13/20 14:40 Last Admin: 10/13/20 14:43 Dose: 1 mg Documented by: Hydromorphone HCl (Dilaudid) 0.5 mg IVPUSH ONETIME ONE Stop: 10/13/20 18:46 Last Admin: 10/13/20 18:49 Dose: 0.5 mg Documented by: Sodium Chloride (Normal Saline) 1,000 mls @ 100 mls/hr IV NOW STA Stop: 10/14/20 00:14 Last Admin: 10/13/20 15:21 Dose: 100 mls/hr Documented by: Piperacillin Sod/Tazobactam (Sod 4.5 gm/ Sodium Chloride) 100 mls @ 200 mls/hr IV ONETIME ONE Stop: 10/13/20 16:59 Last Admin: 10/13/20 16:35 Dose: 200 mls/hr Documented by: Vancomycin HCl 2 gm/ Sodium (Chloride) 500 mls @ 250 mls/hr IV ONETIME ONE Stop: 10/13/20 18:59 Last Admin: 10/13/20 17:09 Dose: 250 mls/hr Documented by: Vancomycin HCl 1 gm/ Sodium (Chloride) 250 mls @ 250 mls/hr IV Q12H [facility] Piperacillin Sod/Tazobactam (Sod 4.5 gm/ Sodium Chloride) 100 mls @ 25 mls/hr IV Q8H [facility] Vancomycin HCl 1.75 gm/ Sodium (Chloride) 500 mls @ 250 mls/hr IV Q8H [facility] Last Admin: 10/14/20 00:41 Dose: 250 mls/hr Documented by: Ibuprofen (Motrin) 400 mg PO Q6H PRN PRN Reason: Pain (mild 1-3) Iopamidol (Isovue-300 (61%)) 100 ml IVPUSH ONETIME ONE Stop: 10/13/20 14:52 Last Admin: 10/13/20 15:11 Dose: 100 ml Documented by: Naproxen (Naprosyn) 500 mg PO ONETIME ONE Stop: 10/13/20 20:02 Last Admin: 10/13/20 20:26 Dose: 500 mg Documented by: Ondansetron HCl (Zofran) 4 mg IVPUSH ONETIME ONE Stop: 10/13/20 14:16 Last Admin: 10/13/20 15:09 Dose: Not Given Documented by: Vancomycin HCl (Pharmacy To Dose - Vancomycin) 0 dose .XX ONETIME ONE Stop: 10/13/20 16:32 Last Admin: 10/13/20 17:23 Dose: Not Given Documented by: Vancomycin HCl (Pharmacy To Dose - Vancomycin) 0 dose .XX ONETIME ONE Stop: 10/13/20 21:01 - Exam Quality Assessment: No: Supplemental Oxygen General: Alert, Oriented, Cooperative, No Acute Distress, Other (Less edema and erythema on his left face) HEENT: Mucous Membr. Moist/[place], Other (left eye looks less puffy and I could see a slit at the bottom) Neck: Supple Lungs: Clear to Auscultation, Normal Respiratory Effort Cardiovascular: Regular Rate, Regular Rhythm GI/Abdominal Exam: Normal Bowel Sounds, Soft, Non-Tender, No Organomegaly, No Distention (Male) Exam: Deferred Back Exam: Normal Inspection, Full Range of Motion Extremities: Normal Inspection, Normal Range of Motion, Non-Tender, No Pedal Edema, Normal Capillary Refill Peripheral Pulses: 2+: Dorsalis Pedis (L), Dorsalis Pedis (R) Skin: Warm, Dry, Intact Wound/Incisions: No Drainage, Erythema Improving, Other (scattered blisters on h is left face) Neurological: No New Focal Deficit Psy/Mental Status: Alert, Normal Affect, Normal Mood - Patient Data Lab Results Last 24 hrs: Laboratory Results - last 24 hr 10/13/20 10/13/20 10/13/20 Range/Units 14:40 14:40 14:40 WBC 7.63 (4.23-9.07) K/mm3 RBC 6.38 H (4.63-6.08) M/mm3 Hgb 12.2 L (13.7-17.5) gm/dl Hct 38.9 L (40.1-51.0) % MCV 61.0 L (79.0-92.2) fl MCH 19.1 L (25.7-32.2) pg MCHC 31.4 L (32.2-35.5) g/dl RDW Std Deviation 36.4 (35.1-43.9) fL Plt Count 229 (163-337) K/mm3 MPV 10.9 (9.4-12.3) fl Neut % (Auto) 64.7 (34.0-67.9) % Lymph % (Auto) 19.8 L (21.8-53.1) % [place] % (Auto) 13.9 H (5.3-12.2) % Eos % (Auto) 1.0 (0.8-7.0) Baso % (Auto) 0.3 (0.1-1.2) % Neut # (Auto) 4.94 (1.78-5.38) K/mm3 Lymph # (Auto) 1.51 (1.32-3.57) K/mm3 [place] # (Auto) 1.06 H (0.30-0.82) K/mm3 Eos # (Auto) 0.08 (0.04-0.54) K/mm3 Baso # (Auto) 0.02 (0.01-0.08) K/mm3 Manual Slide Review Abnormal smear Sodium 142 (136-145) mEq/L Potassium 3.8 (3.5-5.1) mEq/L Chloride 105 (98-107) mEq/L Carbon Dioxide 27 (21-32) mEq/L Anion Gap 13.8 (5-15) BUN 9 (7-18) mg/dL Creatinine 0.9 (0.7-1.3) mg/dL Est Cr Clr Drug Dosing 123.35 mL/min Estimated GFR (MDRD) > 60 (>60) mL/min BUN/Creatinine Ratio 10.0 L (14-18) Glucose 103 (74-106) mg/dL Lactic Acid 1.2 (0.4-2.0) mmol/L Calcium 8.6 (8.5-10.1) mg/dL Magnesium (1.8-2.4) mg/dl Total Bilirubin 1.8 H (0.2-1.0) mg/dL AST 32 (15-37) U/L ALT 71 H (16-63) U/L Alkaline Phosphatase 58 (46-116) U/L C-Reactive Protein 3.4 H* (<1.0) mg/dL Total Protein 8.0 (6.4-8.2) g/dl Albumin 4.0 (3.4-5.0) g/dl Globulin 4.0 gm/dL Albumin/Globulin Ratio 1.0 (1-2) SARS-CoV-2 RNA (GIOVANNI) (NEGATIVE) 10/13/20 10/14/20 10/14/20 Range/Units 17:49 06:20 06:20 WBC 6.67 (4.23-9.07) K/mm3 RBC 5.53 (4.63-6.08) M/mm3 Hgb 10.9 L (13.7-17.5) gm/dl Hct 34.1 L (40.1-51.0) % MCV 61.7 L (79.0-92.2) fl MCH 19.7 L (25.7-32.2) pg MCHC 32.0 L (32.2-35.5) g/dl RDW Std Deviation 36.6 (35.1-43.9) fL Plt Count 203 (163-337) K/mm3 MPV 11.1 (9.4-12.3) fl Neut % (Auto) 52.9 (34.0-67.9) % Lymph % (Auto) 31.3 (21.8-53.1) % [place] % (Auto) 13.0 H (5.3-12.2) % Eos % (Auto) 2.1 (0.8-7.0) Baso % (Auto) 0.7 (0.1-1.2) % Neut # (Auto) 3.52 (1.78-5.38) K/mm3 Lymph # (Auto) 2.09 (1.32-3.57) K/mm3 [place] # (Auto) 0.87 H (0.30-0.82) K/mm3 Eos # (Auto) 0.14 (0.04-0.54) K/mm3 Baso # (Auto) 0.05 (0.01-0.08) K/mm3 Manual Slide Review Not Reportable Sodium 140 (136-145) mEq/L Potassium 3.8 (3.5-5.1) mEq/L Chloride 106 (98-107) mEq/L Carbon Dioxide 27 (21-32) mEq/L Anion Gap 10.8 (5-15) BUN 10 (7-18) mg/dL Creatinine 1.0 (0.7-1.3) mg/dL Est Cr Clr Drug Dosing 111.01 mL/min Estimated GFR (MDRD) > 60 (>60) mL/min BUN/Creatinine Ratio 10.0 L (14-18) Glucose 108 H (74-106) mg/dL Lactic Acid (0.4-2.0) mmol/L Calcium 8.3 L (8.5-10.1) mg/dL Magnesium 2.1 (1.8-2.4) mg/dl Total Bilirubin (0.2-1.0) mg/dL AST (15-37) U/L ALT (16-63) U/L Alkaline Phosphatase (46-116) U/L C-Reactive Protein 2.0 H* (<1.0) mg/dL Total Protein (6.4-8.2) g/dl Albumin (3.4-5.0) g/dl Globulin gm/dL Albumin/Globulin Ratio (1-2) SARS-CoV-2 RNA (GIOVANNI) Negative (NEGATIVE) Result Diagrams: 10/14/20 06:20 10/14/20 06:20 Sepsis Event Note - Evaluation Sepsis Screening Result: No Definite Risk - Focused Exam Vital Signs: Vital Signs Temp Pulse Resp BP Pulse Ox 10/14/20 07:29 36.8 C 53 L 16 149/97 H 99 10/14/20 06:09 36.6 C 58 L 16 130/87 98 10/14/20 00:50 36.7 C 55 L 16 122/60 98 - Problem List Review Problem List Initiated/Reviewed/Updated: Yes - My Orders Last 24 Hours: My Active Orders 10/13/20 Dinner Regular Diet [DIET] 10/13/20 19:55 Height and Weight [RC] 04 Oxygen Therapy [RC] PRN Up ad Jayleen [RC] ASDIRECTED VTE/DVT Education [RC] PER UNIT ROUTINE Vital Signs [RC] Q4HR Consult to Case Management/Gas Reverser [CONS] Routine Consult to Supervisor [employer] [CONS] Routine Respiratory Care Assess and Treatment [CONS] Routine CULTURE SPUTUM + SMEAR [RM] Stat Acetaminophen [Tylenol] 650 mg RECTAL Q4H PRN Acetaminophen/HYDROcodone [[place] 325-5 MG] 2 tab PO Q4H PRN Albuterol/Ipratropium [DuoNeb 3.0-0.5 MG/3 ML] 3 ml NEB Q4H PRN Docusate Sodium/Sennosides [Senna Plus] 1 tab PO BID PRN HYDROmorphone [Dilaudid] 0.5 mg IVPUSH Q2H PRN Ondansetron [Zofran] 4 mg IV Q6H PRN Promethazine [Phenergan] 12.5 mg Sodium Chloride 0.9% [Normal Saline] 50 ml IV Q6H Temazepam [Restoril] 15 mg PO BEDTIME PRN polyethylene glycoL 3350 [MiraLAX] 17 gm PO DAILY PRN Resuscitation Status Routine 10/13/20 19:56 Intake and Output [RC] 04,16 Pulse Oximetry [RC] PRN 10/13/20 19:57 RT Aerosol Therapy [RC] ASDIRECTED 10/13/20 19:58 Cooling Warming Measures [RC] ASDIRECTED Ice Pack [Ice Therapy] [OM.PC] Routine 10/13/20 20:05 Precautions [COMM] Routine 10/13/20 21:00 Famotidine [Pepcid] 20 mg PO BID 10/14/20 03:00 Piperacillin/Tazobactam [Piperacil-Tazobact] 4.5 gm Sodium Chloride 0.9% [Normal Saline] 100 ml IV Q8H 10/14/20 06:20 A1C [GLYCOSYLATED HEMOGLOBIN,HGBA1C] [CHEM] AM 10/14/20 09:00 Enoxaparin [Lovenox] 40 mg SUBCUT DAILY Naproxen [Naprosyn] 500 mg PO Q12HR 10/14/20 13:00 Vancomycin 1.75 gm Sodium Chloride 0.9% [Normal Saline] 500 ml IV Q8H 10/15/20 05:11 BASIC METABOLIC PANEL,BMP [CHEM] AM C-REACTIVE PROTEIN [CHEM] AM CBC WITH AUTO DIFF [HEME] AM MAGNESIUM [CHEM] AM 10/16/20 05:11 BASIC METABOLIC PANEL,BMP [CHEM] AM C-REACTIVE PROTEIN [CHEM] AM CBC WITH AUTO DIFF [HEME] AM MAGNESIUM [CHEM] AM 10/17/20 05:11 BASIC METABOLIC PANEL,BMP [CHEM] AM C-REACTIVE PROTEIN [CHEM] AM CBC WITH AUTO DIFF [HEME] AM MAGNESIUM [CHEM] AM 10/17/20 15:00 Ketorolac [Toradol] 30 mg IVPUSH Q6H PRN 10/18/20 05:11 BASIC METABOLIC PANEL,BMP [CHEM] AM C-REACTIVE PROTEIN [CHEM] AM CBC WITH AUTO DIFF [HEME] AM MAGNESIUM [CHEM] AM 10/19/20 05:11 BASIC METABOLIC PANEL,BMP [CHEM] AM C-REACTIVE PROTEIN [CHEM] AM CBC WITH AUTO DIFF [HEME] AM MAGNESIUM [CHEM] AM 10/20/20 05:11 BASIC METABOLIC PANEL,BMP [CHEM] AM C-REACTIVE PROTEIN [CHEM] AM CBC WITH AUTO DIFF [HEME] AM MAGNESIUM [CHEM] AM - Plan Plan:: This is a 39 yo white male with no past medical hx/o who presents to ED with worsening facial infection. He states he was seen in [place] and was admitted for facial cellulitis with tooth abscess on October 10 treated with IV Vancomycin and Unasyn. Assessment: Acute: Left Sided Facial Edema and Cellulitis/SSTI, improved DDX: Staph infection/Impetigo Microcytic Hypochromic Anemia with Hgb of 12.2 grams; 10.9 grams Elevated Total Bilirubin of 1.8 Elevated ALT of 71 Elevated CRP of 3.4; now 2.0 Class II Obese Chronic: Obesity Plan: He looks much better. Continue IV Vancomycin and Zosyn for pharmacy to dose. Regular diet. Ice pack to apply at the affected face QID to reduce swelling. Naproxen 500 mg po BID for inflammation. PRN pain medication. Wound culture. Aspiration precaution. DVT/GI Prophylaxis. Code status is full. Possible discharge in 2-3 days.
[2020-10-14] MEDS: Vancomycin 1.75 GM in Sodium Chloride 0.9% 500 ML IV SCH ×2 (13:42→21:17)
[2020-10-15] MEDS: Piperacillin/Tazobactam 4.5 GM in Sodium Chloride 0.9% 100 ML IV SCH ×3 (02:15→18:15)
[2020-10-15] MEDS: Vancomycin 1.75 GM in Sodium Chloride 0.9% 500 ML IV SCH ×3 (04:56→20:01)
[2020-10-15] MEDS: Acetaminophen/HYDROcodone 325-5 MG Tab PO PRN ×2 (06:36→18:24)
--- NOTE | 2020-10-15 06:58 | PCM.PN ---
- General Info Date of Service: 10/15/20 Admission Dx/Problem (Free Text): Admission Diagnosis/Problem Admission Diagnosis/Problem Cellulitis and abscess of face Subjective Update: No overnight or acute issues. He is looking much better clinically. He is now able to see on his left eye. He has no complaints. He is afebrile w/o leukocytosis. Functional Status: Reports: Pain Controlled, Tolerating Diet, Ambulating, Urinating, Incentive Spirometry. Denies: New Symptoms - Review of Systems General: Denies: Fever, Weakness, Fatigue, Malaise HEENT: Reports: No Symptoms Pulmonary: Denies: Shortness of Breath Cardiovascular: Denies: Chest Pain Gastrointestinal: Denies: Abdominal Pain, Nausea, Vomiting Genitourinary: Denies: Frequency Musculoskeletal: Denies: Joint Pain Skin: Denies: Cyanosis, Jaundice, Pallor Neurological: Denies: Confusion Psychiatric: Denies: Depression, Anxiety - Patient Data Vitals - Most Recent: Last Vital Signs Temp 36.8 C 10/14/20 21:27 Pulse 64 10/14/20 21:27 Resp 16 10/14/20 21:27 BP 142/73 H 10/14/20 21:27 Pulse Ox 100 10/14/20 21:27 Weight - Most Recent: 120.247 kg I&O - Last 24 Hours: Intake & Output 10/14/20 10/14/20 10/15/20 14:59 22:59 06:59 Intake Total 1640 1500 Balance 1640 1500 Lab Results Last 24 Hours: Laboratory Results - last 24 hr 10/14/20 Range/Units 06:20 Manual Slide Review Not Reportable [facility] Results Last 24 Hours: Microbiology 10/13/20 14:47 Aerobic Blood Culture - Preliminary Blood - Venous - Lab Draw NO GROWTH AFTER 1 DAY Anaerobic Blood Culture - Preliminary NO GROWTH AFTER 1 DAY 10/13/20 14:40 Aerobic Blood Culture - Preliminary Blood - Venous NO GROWTH AFTER 1 DAY Anaerobic Blood Culture - Preliminary NO GROWTH AFTER 1 DAY Med Orders - Current: Current Medications Acetaminophen (Tylenol) 650 mg RECTAL Q4H PRN PRN Reason: Pain (mild 1-3) Hydrocodone Bitart/Acetaminophen ([place] 325-5 Mg) 2 tab PO Q4H PRN PRN Reason: Pain (moderate 4-6) Last Admin: 10/15/20 06:36 Dose: 2 tab Documented by: Albuterol/Ipratropium (Duoneb 3.0-0.5 Mg/3 Ml) 3 ml NEB Q4H PRN PRN Reason: Shortness Of Breath/wheezing Enoxaparin Sodium (Lovenox) 40 mg SUBCUT DAILY [facility] Last Admin: 10/14/20 08:13 Dose: 40 mg Documented by: Famotidine (Pepcid) 20 mg PO BID [facility] Last Admin: 10/14/20 21:16 Dose: 20 mg Documented by: Hydromorphone HCl (Dilaudid) 0.5 mg IVPUSH Q2H PRN PRN Reason: Pain (severe 7-10) Last Admin: 10/14/20 00:42 Dose: 0.5 mg Documented by: Promethazine HCl 12.5 mg/ (Sodium Chloride) 50.5 mls @ 100 mls/hr IV Q6H PRN PRN Reason: Nausea/Vomiting Piperacillin Sod/Tazobactam (Sod 4.5 gm/ Sodium Chloride) 100 mls @ 25 mls/hr IV Q8H [facility] Last Admin: 10/15/20 02:15 Dose: 25 mls/hr Documented by: Vancomycin HCl 1.75 gm/ Sodium (Chloride) 500 mls @ 250 mls/hr IV Q8H [facility] Last Admin: 10/15/20 04:56 Dose: 250 mls/hr Documented by: Ketorolac Tromethamine (Toradol) 30 mg IVPUSH Q6H PRN PRN Reason: Pain (moderate 4-6) Stop: 10/22/20 15:01 Naproxen (Naprosyn) 500 mg PO Q12HR [facility] Stop: 10/17/20 09:01 Last Admin: 10/14/20 21:16 Dose: 500 mg Documented by: Ondansetron HCl (Zofran) 4 mg IV Q6H PRN PRN Reason: Nausea/Vomiting Polyethylene Glycol (Miralax) 17 gm PO DAILY PRN PRN Reason: Constipation Senna/Docusate Sodium (Senna Plus) 1 tab PO BID PRN PRN Reason: Constipation Sodium Chloride (Saline Flush) 10 ml FLUSH ASDIRECTED PRN PRN Reason: Keep Vein Open Last Admin: 10/13/20 15:22 Dose: 10 ml Documented by: Sodium Chloride (Saline Flush) 10 ml FLUSH ONETIME PRN PRN Reason: IV FLUSH Last Admin: 10/13/20 15:11 Dose: 10 ml Documented by: Temazepam (Restoril) 15 mg PO BEDTIME PRN PRN Reason: Sleep Last Admin: 10/14/20 00:41 Dose: 15 mg Documented by: Discontinued Medications Hydromorphone HCl (Dilaudid) 0.5 mg IVPUSH ONETIME ONE Stop: 10/13/20 14:16 Last Admin: 10/13/20 15:10 Dose: Not Given Documented by: Hydromorphone HCl (Dilaudid) 1 mg IM ONETIME ONE Stop: 10/13/20 14:40 Last Admin: 10/13/20 14:43 Dose: 1 mg Documented by: Hydromorphone HCl (Dilaudid) 0.5 mg IVPUSH ONETIME ONE Stop: 10/13/20 18:46 Last Admin: 10/13/20 18:49 Dose: 0.5 mg Documented by: Sodium Chloride (Normal Saline) 1,000 mls @ 100 mls/hr IV NOW STA Stop: 10/14/20 00:14 Last Admin: 10/13/20 15:21 Dose: 100 mls/hr Documented by: Piperacillin Sod/Tazobactam (Sod 4.5 gm/ Sodium Chloride) 100 mls @ 200 mls/hr IV ONETIME ONE Stop: 10/13/20 16:59 Last Admin: 10/13/20 16:35 Dose: 200 mls/hr Documented by: Vancomycin HCl 2 gm/ Sodium (Chloride) 500 mls @ 250 mls/hr IV ONETIME ONE Stop: 10/13/20 18:59 Last Admin: 10/13/20 17:09 Dose: 250 mls/hr Documented by: Vancomycin HCl 1 gm/ Sodium (Chloride) 250 mls @ 250 mls/hr IV Q12H [facility] Piperacillin Sod/Tazobactam (Sod 4.5 gm/ Sodium Chloride) 100 mls @ 25 mls/hr IV Q8H [facility] Vancomycin HCl 1.75 gm/ Sodium (Chloride) 500 mls @ 250 mls/hr IV Q8H [facility] Last Admin: 10/14/20 00:41 Dose: 250 mls/hr Documented by: Ibuprofen (Motrin) 400 mg PO Q6H PRN PRN Reason: Pain (mild 1-3) Iopamidol (Isovue-300 (61%)) 100 ml IVPUSH ONETIME ONE Stop: 10/13/20 14:52 Last Admin: 10/13/20 15:11 Dose: 100 ml Documented by: Naproxen (Naprosyn) 500 mg PO ONETIME ONE Stop: 10/13/20 20:02 Last Admin: 10/13/20 20:26 Dose: 500 mg Documented by: Ondansetron HCl (Zofran) 4 mg IVPUSH ONETIME ONE Stop: 10/13/20 14:16 Last Admin: 10/13/20 15:09 Dose: Not Given Documented by: Vancomycin HCl (Pharmacy To Dose - Vancomycin) 0 dose .XX ONETIME ONE Stop: 10/13/20 16:32 Last Admin: 10/13/20 17:23 Dose: Not Given Documented by: Vancomycin HCl (Pharmacy To Dose - Vancomycin) 0 dose .XX ONETIME ONE Stop: 10/13/20 21:01 Last Admin: 10/14/20 12:28 Dose: Not Given Documented by: - Exam Quality Assessment: No: Supplemental Oxygen General: Alert, Oriented, Cooperative, No Acute Distress, Other (Obese) HEENT: Pupils Equal, Pupils Reactive, EOMI, Mucous Membr. Moist/[place], Other (left face: lookd much better. No appreciable erythema. Scattered lesions are healing and intact) Neck: Supple Lungs: Clear to Auscultation, Normal Respiratory Effort Cardiovascular: Regular Rate, Regular Rhythm GI/Abdominal Exam: Normal Bowel Sounds, Soft, Non-Tender, No Organomegaly, No Distention, No Abnormal Bruit (Male) Exam: Deferred Back Exam: Normal Inspection, Full Range of Motion Extremities: Normal Inspection, Normal Range of Motion, Non-Tender, No Pedal Edema, Normal Capillary Refill Peripheral Pulses: 2+: Dorsalis Pedis (L), Dorsalis Pedis (R) Skin: Warm, Dry, Intact Wound/Incisions: Healing Well, No Drainage, Erythema Improving Neurological: No New Focal Deficit Psy/Mental Status: Alert, Normal Affect, Normal Mood - Patient Data Lab Results Last 24 hrs: Laboratory Results - last 24 hr 10/14/20 Range/Units 06:20 Manual Slide Review Not Reportable Result Diagrams: 10/17/20 07:22 10/16/20 07:42 [facility] Results Last 24 hrs: Microbiology 10/13/20 14:47 Aerobic Blood Culture - Preliminary Blood - Venous - Lab Draw NO GROWTH AFTER 1 DAY Anaerobic Blood Culture - Preliminary NO GROWTH AFTER 1 DAY 10/13/20 14:40 Aerobic Blood Culture - Preliminary Blood - Venous NO GROWTH AFTER 1 DAY Anaerobic Blood Culture - Preliminary NO GROWTH AFTER 1 DAY Sepsis Event Note - Evaluation Sepsis Screening Result: No Definite Risk - Focused Exam Vital Signs: Vital Signs Temp Pulse Resp BP Pulse Ox 10/14/20 21:27 36.8 C 64 16 142/73 H 100 10/14/20 19:56 100 - Problem List Review Problem List Initiated/Reviewed/Updated: Yes - My Orders Last 24 Hours: My Active Orders 10/14/20 06:20 A1C [GLYCOSYLATED HEMOGLOBIN,HGBA1C] [CHEM] AM 10/14/20 09:00 Enoxaparin [Lovenox] 40 mg SUBCUT DAILY Naproxen [Naprosyn] 500 mg PO Q12HR 10/14/20 13:00 Vancomycin 1.75 gm Sodium Chloride 0.9% [Normal Saline] 500 ml IV Q8H 10/15/20 05:11 BASIC METABOLIC PANEL,BMP [CHEM] AM C-REACTIVE PROTEIN [CHEM] AM CBC WITH AUTO DIFF [HEME] AM MAGNESIUM [CHEM] AM 10/16/20 05:11 BASIC METABOLIC PANEL,BMP [CHEM] AM C-REACTIVE PROTEIN [CHEM] AM CBC WITH AUTO DIFF [HEME] AM MAGNESIUM [CHEM] AM 10/17/20 05:11 BASIC METABOLIC PANEL,BMP [CHEM] AM C-REACTIVE PROTEIN [CHEM] AM CBC WITH AUTO DIFF [HEME] AM MAGNESIUM [CHEM] AM 10/17/20 15:00 Ketorolac [Toradol] 30 mg IVPUSH Q6H PRN 10/18/20 05:11 BASIC METABOLIC PANEL,BMP [CHEM] AM C-REACTIVE PROTEIN [CHEM] AM CBC WITH AUTO DIFF [HEME] AM MAGNESIUM [CHEM] AM 10/19/20 05:11 BASIC METABOLIC PANEL,BMP [CHEM] AM C-REACTIVE PROTEIN [CHEM] AM CBC WITH AUTO DIFF [HEME] AM MAGNESIUM [CHEM] AM 10/20/20 05:11 BASIC METABOLIC PANEL,BMP [CHEM] AM C-REACTIVE PROTEIN [CHEM] AM CBC WITH AUTO DIFF [HEME] AM MAGNESIUM [CHEM] AM - Plan Plan:: This is a 39 yo white male with no past medical hx/o who presents to ED with worsening facial infection. He states he was seen in [place] and was admitted for facial cellulitis with tooth abscess on October 10 treated with IV Vancomycin and Unasyn. Assessment: Acute: Left Sided Facial Edema and Cellulitis/SSTI, continues to improve DDX: Staph infection/Impetigo Microcytic Hypochromic Anemia with Hgb of 12.2 grams; 11.5 grams Elevated Total Bilirubin of 1.8 Elevated ALT of 71 Elevated CRP of 3.4; now 1.1 Class II Obese Chronic: Obesity Plan: He continues to improve clinically. Continue IV Vancomycin and Zosyn for pharmacy to dose. Regular diet. Ice pack to apply at the affected face QID to reduce swelling. Naproxen 500 mg po BID for inflammation. PRN pain medication. Wound culture. Blood cultures are negative. Aspiration precaution. DVT/GI Prophylaxis. Code status is full. Possible discharge in 1-2 days.
[2020-10-15] MEDS: Famotidine 20 MG Tab PO SCH ×2 (08:21→20:01)
[2020-10-15] MEDS: Enoxaparin 40 MG/0.4 ML Syringe SUBCUT SCH (08:22)
[2020-10-15] MEDS: Naproxen 500 MG Tab PO SCH ×2 (08:22→20:01)
[2020-10-16] MEDS: Piperacillin/Tazobactam 4.5 GM in Sodium Chloride 0.9% 100 ML IV SCH ×3 (04:04→18:14)
[2020-10-16] MEDS: Vancomycin 1.75 GM in Sodium Chloride 0.9% 500 ML IV SCH (04:04)
[2020-10-16] MEDS ORDERED: Vancomycin 1 GM, Vancomycin 500 MG in Sodium Chloride 0.9% 500 ML IV SCH (07:18)
[2020-10-16] MEDS: Enoxaparin 40 MG/0.4 ML Syringe SUBCUT SCH (09:43)
[2020-10-16] MEDS: Famotidine 20 MG Tab PO SCH ×2 (09:43→21:34)
[2020-10-16] MEDS: Naproxen 500 MG Tab PO SCH ×2 (09:43→21:34)
--- NOTE | 2020-10-16 11:16 | PCM.PN ---
- General Info Date of Service: 10/16/20 Admission Dx/Problem (Free Text): Admission Diagnosis/Problem Admission Diagnosis/Problem Cellulitis and abscess of face Subjective Update: Patient states that the facial swelling has improved greatly. He also states that the area of erythema does not hurt. It has developed blisters that have crusted over over the last 2 days without any burning, itching, or discomfort. Left eye is still swollen but he can see through it. There is less discharge. No fevers overnight. Functional Status: Reports: Pain Controlled - Review of Systems General: Reports: No Symptoms HEENT: Reports: No Symptoms. Denies: Visual Changes Pulmonary: Reports: No Symptoms Cardiovascular: Reports: No Symptoms Gastrointestinal: Reports: No Symptoms Musculoskeletal: Reports: No Symptoms Skin: Reports: Other Neurological: Reports: No Symptoms, Other (No complaints of vision changes out of left eye.) - Patient Data Vitals - Most Recent: Last Vital Signs Temp 98.4 F 10/16/20 07:47 Pulse 55 L 10/16/20 07:47 Resp 16 10/16/20 07:47 BP 147/91 H 10/16/20 07:47 Pulse Ox 99 10/16/20 07:47 Weight - Most Recent: 266 lb 4.8 oz I&O - Last 24 Hours: Intake & Output 10/15/20 10/16/20 10/16/20 22:59 06:59 14:59 Intake Total 1994 1200 120 Balance 1994 1200 120 Lab Results Last 24 Hours: Laboratory Results - last 24 hr 10/15/20 10/16/20 10/16/20 Range/Units 12:04 07:42 07:42 WBC 8.48 (4.23-9.07) K/mm3 RBC 5.82 (4.63-6.08) M/mm3 Hgb 11.2 L (13.7-17.5) gm/dl Hct 35.6 L (40.1-51.0) % MCV 61.2 L (79.0-92.2) fl MCH 19.2 L (25.7-32.2) pg MCHC 31.5 L (32.2-35.5) g/dl RDW Std Deviation 35.1 (35.1-43.9) fL Plt Count 305 (163-337) K/mm3 MPV 10.9 (9.4-12.3) fl Neut % (Auto) 63.9 (34.0-67.9) % Lymph % (Auto) 22.9 (21.8-53.1) % [place] % (Auto) 8.7 (5.3-12.2) % Eos % (Auto) 3.5 (0.8-7.0) Baso % (Auto) 0.4 (0.1-1.2) % Neut # (Auto) 5.42 H (1.78-5.38) K/mm3 Lymph # (Auto) 1.94 (1.32-3.57) K/mm3 [place] # (Auto) 0.74 (0.30-0.82) K/mm3 Eos # (Auto) 0.30 (0.04-0.54) K/mm3 Baso # (Auto) 0.03 (0.01-0.08) K/mm3 Manual Slide Review Abnormal smear Sodium 146 H (136-145) mEq/L Potassium 3.9 (3.5-5.1) mEq/L Chloride 110 H (98-107) mEq/L Carbon Dioxide 24 (21-32) mEq/L Anion Gap 15.9 H (5-15) BUN 12 (7-18) mg/dL Creatinine 1.1 (0.7-1.3) mg/dL Est Cr Clr Drug Dosing 100.92 mL/min Estimated GFR (MDRD) > 60 (>60) mL/min BUN/Creatinine Ratio 10.9 L (14-18) Glucose 88 (74-106) mg/dL Calcium 8.3 L (8.5-10.1) mg/dL Magnesium 2.3 (1.8-2.4) mg/dl C-Reactive Protein 0.6 (<1.0) mg/dL Vancomycin Trough 18.9 (10.0-20.0) [facility] Results Last 24 Hours: Microbiology 10/13/20 14:47 Aerobic Blood Culture - Preliminary Blood - Venous - Lab Draw NO GROWTH AFTER 2 DAYS Anaerobic Blood Culture - Preliminary NO GROWTH AFTER 2 DAYS 10/13/20 14:40 Aerobic Blood Culture - Preliminary Blood - Venous NO GROWTH AFTER 2 DAYS Anaerobic Blood Culture - Preliminary NO GROWTH AFTER 2 DAYS Med Orders - Current: Current Medications Acetaminophen (Tylenol) 650 mg RECTAL Q4H PRN PRN Reason: Pain (mild 1-3) Hydrocodone Bitart/Acetaminophen ([place] 325-5 Mg) 2 tab PO Q4H PRN PRN Reason: Pain (moderate 4-6) Last Admin: 10/15/20 18:24 Dose: 2 tab Documented by: Albuterol/Ipratropium (Duoneb 3.0-0.5 Mg/3 Ml) 3 ml NEB Q4H PRN PRN Reason: Shortness Of Breath/wheezing Enoxaparin Sodium (Lovenox) 40 mg SUBCUT DAILY [facility] Last Admin: 10/16/20 09:43 Dose: 40 mg Documented by: Famotidine (Pepcid) 20 mg PO BID [facility] Last Admin: 10/16/20 09:43 Dose: 20 mg Documented by: Hydromorphone HCl (Dilaudid) 0.5 mg IVPUSH Q2H PRN PRN Reason: Pain (severe 7-10) Last Admin: 10/14/20 00:42 Dose: 0.5 mg Documented by: Promethazine HCl 12.5 mg/ (Sodium Chloride) 50.5 mls @ 100 mls/hr IV Q6H PRN PRN Reason: Nausea/Vomiting Piperacillin Sod/Tazobactam (Sod 4.5 gm/ Sodium Chloride) 100 mls @ 25 mls/hr IV Q8H [facility] Last Admin: 10/16/20 04:04 Dose: 25 mls/hr Documented by: Vancomycin HCl 1 gm/Vancomycin HCl 500 mg/ Sodium Chloride 500 mls @ 250 mls/hr IV Q8H [facility] Ketorolac Tromethamine (Toradol) 30 mg IVPUSH Q6H PRN PRN Reason: Pain (moderate 4-6) Stop: 10/22/20 15:01 Naproxen (Naprosyn) 500 mg PO Q12HR [facility] Stop: 10/17/20 09:01 Last Admin: 10/16/20 09:43 Dose: 500 mg Documented by: Ondansetron HCl (Zofran) 4 mg IV Q6H PRN PRN Reason: Nausea/Vomiting Polyethylene Glycol (Miralax) 17 gm PO DAILY PRN PRN Reason: Constipation Senna/Docusate Sodium (Senna Plus) 1 tab PO BID PRN PRN Reason: Constipation Sodium Chloride (Saline Flush) 10 ml FLUSH ASDIRECTED PRN PRN Reason: Keep Vein Open Last Admin: 10/13/20 15:22 Dose: 10 ml Documented by: Sodium Chloride (Saline Flush) 10 ml FLUSH ONETIME PRN PRN Reason: IV FLUSH Last Admin: 10/13/20 15:11 Dose: 10 ml Documented by: Temazepam (Restoril) 15 mg PO BEDTIME PRN PRN Reason: Sleep Last Admin: 10/14/20 00:41 Dose: 15 mg Documented by: Discontinued Medications Hydromorphone HCl (Dilaudid) 0.5 mg IVPUSH ONETIME ONE Stop: 10/13/20 14:16 Last Admin: 10/13/20 15:10 Dose: Not Given Documented by: Hydromorphone HCl (Dilaudid) 1 mg IM ONETIME ONE Stop: 10/13/20 14:40 Last Admin: 10/13/20 14:43 Dose: 1 mg Documented by: Hydromorphone HCl (Dilaudid) 0.5 mg IVPUSH ONETIME ONE Stop: 10/13/20 18:46 Last Admin: 10/13/20 18:49 Dose: 0.5 mg Documented by: Sodium Chloride (Normal Saline) 1,000 mls @ 100 mls/hr IV NOW STA Stop: 10/14/20 00:14 Last Admin: 10/13/20 15:21 Dose: 100 mls/hr Documented by: Piperacillin Sod/Tazobactam (Sod 4.5 gm/ Sodium Chloride) 100 mls @ 200 mls/hr IV ONETIME ONE Stop: 10/13/20 16:59 Last Admin: 10/13/20 16:35 Dose: 200 mls/hr Documented by: Vancomycin HCl 2 gm/ Sodium (Chloride) 500 mls @ 250 mls/hr IV ONETIME ONE Stop: 10/13/20 18:59 Last Admin: 10/13/20 17:09 Dose: 250 mls/hr Documented by: Vancomycin HCl 1 gm/ Sodium (Chloride) 250 mls @ 250 mls/hr IV Q12H [facility] Piperacillin Sod/Tazobactam (Sod 4.5 gm/ Sodium Chloride) 100 mls @ 25 mls/hr IV Q8H [facility] Vancomycin HCl 1.75 gm/ Sodium (Chloride) 500 mls @ 250 mls/hr IV Q8H [facility] Last Admin: 10/14/20 00:41 Dose: 250 mls/hr Documented by: Vancomycin HCl 1.75 gm/ Sodium (Chloride) 500 mls @ 250 mls/hr IV Q8H [facility] Last Admin: 10/16/20 04:04 Dose: 250 mls/hr Documented by: Vancomycin HCl 1 gm/Vancomycin HCl 500 mg/ Sodium Chloride 500 mls @ 250 mls/hr IV Q8H [facility] Last Admin: 10/16/20 09:05 Dose: Not Given Documented by: Ibuprofen (Motrin) 400 mg PO Q6H PRN PRN Reason: Pain (mild 1-3) Iopamidol (Isovue-300 (61%)) 100 ml IVPUSH ONETIME ONE Stop: 10/13/20 14:52 Last Admin: 10/13/20 15:11 Dose: 100 ml Documented by: Naproxen (Naprosyn) 500 mg PO ONETIME ONE Stop: 10/13/20 20:02 Last Admin: 10/13/20 20:26 Dose: 500 mg Documented by: Ondansetron HCl (Zofran) 4 mg IVPUSH ONETIME ONE Stop: 10/13/20 14:16 Last Admin: 10/13/20 15:09 Dose: Not Given Documented by: Vancomycin HCl (Pharmacy To Dose - Vancomycin) 0 dose .XX ONETIME ONE Stop: 10/13/20 16:32 Last Admin: 10/13/20 17:23 Dose: Not Given Documented by: Vancomycin HCl (Pharmacy To Dose - Vancomycin) 0 dose .XX ONETIME ONE Stop: 10/13/20 21:01 Last Admin: 10/14/20 12:28 Dose: Not Given Documented by: - Exam Quality Assessment: No: Supplemental Oxygen General: Alert, Oriented HEENT: Pupils Equal, Mucous Membr. Moist/[place], Other (Left eyelids mildly stuck together with purulent matter.) Neck: Supple Lungs: Clear to Auscultation, Normal Respiratory Effort Cardiovascular: Regular Rate, Regular Rhythm GI/Abdominal Exam: Normal Bowel Sounds, Soft, Non-Tender, No Organomegaly, No Distention, No Abnormal Bruit Extremities: Normal Inspection, Normal Range of Motion, Non-Tender, No Pedal Edema, Normal Capillary Refill Skin: Warm, Dry, Intact Neurological: No New Focal Deficit Psy/Mental Status: Alert, Normal Affect, Normal Mood - Patient Data Lab Results Last 24 hrs: Laboratory Results - last 24 hr 10/15/20 10/16/20 10/16/20 Range/Units 12:04 07:42 07:42 WBC 8.48 (4.23-9.07) K/mm3 RBC 5.82 (4.63-6.08) M/mm3 Hgb 11.2 L (13.7-17.5) gm/dl Hct 35.6 L (40.1-51.0) % MCV 61.2 L (79.0-92.2) fl MCH 19.2 L (25.7-32.2) pg MCHC 31.5 L (32.2-35.5) g/dl RDW Std Deviation 35.1 (35.1-43.9) fL Plt Count 305 (163-337) K/mm3 MPV 10.9 (9.4-12.3) fl Neut % (Auto) 63.9 (34.0-67.9) % Lymph % (Auto) 22.9 (21.8-53.1) % [place] % (Auto) 8.7 (5.3-12.2) % Eos % (Auto) 3.5 (0.8-7.0) Baso % (Auto) 0.4 (0.1-1.2) % Neut # (Auto) 5.42 H (1.78-5.38) K/mm3 Lymph # (Auto) 1.94 (1.32-3.57) K/mm3 [place] # (Auto) 0.74 (0.30-0.82) K/mm3 Eos # (Auto) 0.30 (0.04-0.54) K/mm3 Baso # (Auto) 0.03 (0.01-0.08) K/mm3 Manual Slide Review Abnormal smear Sodium 146 H (136-145) mEq/L Potassium 3.9 (3.5-5.1) mEq/L Chloride 110 H (98-107) mEq/L Carbon Dioxide 24 (21-32) mEq/L Anion Gap 15.9 H (5-15) BUN 12 (7-18) mg/dL Creatinine 1.1 (0.7-1.3) mg/dL Est Cr Clr Drug Dosing 100.92 mL/min Estimated GFR (MDRD) > 60 (>60) mL/min BUN/Creatinine Ratio 10.9 L (14-18) Glucose 88 (74-106) mg/dL Calcium 8.3 L (8.5-10.1) mg/dL Magnesium 2.3 (1.8-2.4) mg/dl C-Reactive Protein 0.6 (<1.0) mg/dL Vancomycin Trough 18.9 (10.0-20.0) Result Diagrams: 10/16/20 07:42 10/16/20 07:42 [facility] Results Last 24 hrs: Microbiology 10/13/20 14:47 Aerobic Blood Culture - Preliminary Blood - Venous - Lab Draw NO GROWTH AFTER 2 DAYS Anaerobic Blood Culture - Preliminary NO GROWTH AFTER 2 DAYS 10/13/20 14:40 Aerobic Blood Culture - Preliminary Blood - Venous NO GROWTH AFTER 2 DAYS Anaerobic Blood Culture - Preliminary NO GROWTH AFTER 2 DAYS Sepsis Event Note - Evaluation Sepsis Screening Result: No Definite Risk - Focused Exam Vital Signs: Vital Signs Temp Pulse Resp BP Pulse Ox 10/16/20 07:47 98.4 F 55 L 16 147/91 H 99 10/16/20 04:10 97.9 F 59 L 14 134/91 H 100 - Problem List & Annotations (1) Dental infection SNOMED Code(s): 257481729 Code(s): K04.7 - PERIAPICAL ABSCESS WITHOUT SINUS Status: Acute Current Visit: Yes (2) Facial cellulitis SNOMED Code(s): 780811518 Code(s): L03.211 - CELLULITIS OF FACE Status: Acute Current Visit: Yes (3) History of tooth extraction SNOMED Code(s): 99241587, 60448723 Code(s): K08.409 - PARTIAL LOSS OF TEETH, UNSPECIFIED CAUSE, UNSPECIFIED CLASS Status: Acute Current Visit: Yes Qualifiers: Tooth loss class: unspecified tooth loss Qualified Code(s): K08.409 - Partial loss of teeth, unspecified cause, unspecified class - Problem List Review Problem List Initiated/Reviewed/Updated: Yes - Plan Plan:: This is a 39 yo white male with no past medical hx/o who presents to ED with worsening facial infection. He states he was seen in [place] and was admitted for facial cellulitis with tooth abscess on October 10 treated with IV Vancomycin and Unasyn. Assessment: Acute: Left Sided Facial Edema and Cellulitis/SSTI, continues to improve DDX: Staph infection/Impetigo Microcytic Hypochromic Anemia with Hgb of 12.2 grams; 11.2 grams No recent liver enzymes performed Elevated Total Bilirubin of 1.8 Elevated ALT of 71 Elevated CRP of 3.4; now 1.1 Class II Obese Chronic: Obesity Plan: He continues to improve clinically. Continue IV Vancomycin and Zosyn for pharmacy to dose. Likely will switch to Keflex and doxycycline tomorrow and discharge home. Regular diet. Ice pack to apply at the affected face QID to reduce swelling. Naproxen 500 mg po BID for inflammation. PRN pain medication. Wound culture. Blood cultures are negative. Aspiration precaution. DVT/GI Prophylaxis. Code status is full. Possible discharge tomorrow.
[2020-10-16] MEDS ORDERED: Piperacillin/Tazobactam 4.5 GM AdvVial ONE (12:06)
[2020-10-16] MEDS: Vancomycin 1 GM, Vancomycin 500 MG in Sodium Chloride 0.9% 500 ML IV SCH ×2 (13:18→21:36)
[2020-10-16 17:24] LABS: HEMOGLOBIN A1C 5.5 %
[2020-10-17] MEDS: Piperacillin/Tazobactam 4.5 GM in Sodium Chloride 0.9% 100 ML IV SCH (06:46)
[2020-10-17] MEDS: Vancomycin 1 GM, Vancomycin 500 MG in Sodium Chloride 0.9% 500 ML IV SCH (06:47)
[2020-10-17] MEDS: Naproxen 500 MG Tab PO SCH (08:21)
[2020-10-17] MEDS: Famotidine 20 MG Tab PO SCH (08:21)
[2020-10-17] MEDS: Enoxaparin 40 MG/0.4 ML Syringe SUBCUT SCH (08:21)
[2020-10-17] MEDS ORDERED: Doxycycline 100 MG Cap PO SCH (12:00)
[2020-10-17] MEDS ORDERED: Cephalexin 500 MG Cap PO SCH (13:00)
--- NOTE | 2020-10-17 14:17 | PCM.DCSUM1 ---
Discharge Summary - Hospital Course HPI Initial Comments: This is a 39 yo white male with no past medical hx/o who presents to ED with worsening facial infection. He states he was seen in [place] and was admitted for facial cellulitis with tooth abscess on October 10 treated with IV Vancomycin and Unasyn. He was released after a couple of days. He was sent home with Augmentin and was referred to a local dentist for tooth extraction. He had his infected teeth (18 and 19th on left lower jaw) taken out yesterday. However he continues to get worse with significant pain and more left sided facial edema. He states he is now unable to open his left eye or close his mouth completely due to facial edema. He denies having fever or chills. He is still able to eat and drink. He was initially seen at [facility] today but was sent to ED for urgent evaluation. His initial work up in ED shows a CBC remarkable for RBC of 6.38, Hgb of 12.2, Hct of 38.9, MCV of 61, MCH of 19.1, MCHC of 31.4, Lymphocytes of 19.8% and Monocytes of 13.9%. His chemistry is significant for total bilirubin of 1.8, ALT of 71 and CRP of 3.4. His Covid 19 test is negative. His vital signs are stable. His facial CT scan report read as diffuse left sided soft tissue swelling. Minimal mucosal thickening within the inferior right maxillary sinus felt to be chronic in finding. No other acute finding is seen. Patient received initial treatment in ED before coming in to the floor for further treatment of worsening facial cellulitis. Diagnosis: Stroke: No - Discharge Data Discharge Date: 10/17/20 (Admit date: 10/13/20) Discharge Disposition: Home, Self-Care 01 Condition: Good - Referral to Home Health Primary Care Physician: Scar Quick MD - Discharge Diagnosis/Problem(s) (1) Facial edema SNOMED Code(s): 908223141 ICD Code: R60.0 - LOCALIZED EDEMA Status: Acute Priority: High (2) Anemia SNOMED Code(s): 399242317 ICD Code: D64.9 - ANEMIA, UNSPECIFIED Status: Chronic Priority: High Qualifiers: Anemia type: unspecified type Qualified Code(s): D64.9 - Anemia, unspecified (3) Hyperbilirubinemia SNOMED Code(s): 72706208 ICD Code: E80.6 - OTHER DISORDERS OF BILIRUBIN METABOLISM Status: Acute Priority: Medium (4) Elevated LFTs SNOMED Code(s): 423933420 ICD Code: R79.89 - OTHER SPECIFIED ABNORMAL FINDINGS OF BLOOD CHEMISTRY Status: Acute Priority: Medium (5) Obesity (BMI 30-39.9) SNOMED Code(s): 522770186, 871682862 ICD Code: E66.9 - OBESITY, UNSPECIFIED Status: Chronic Priority: Medium (6) Facial cellulitis SNOMED Code(s): 550978730 ICD Code: L03.211 - CELLULITIS OF FACE Status: Acute Priority: High (7) Dental infection SNOMED Code(s): 260469964 ICD Code: K04.7 - PERIAPICAL ABSCESS WITHOUT SINUS Status: Acute Priority: High (8) History of tooth extraction SNOMED Code(s): 58949334, 58930733 ICD Code: K08.409 - PARTIAL LOSS OF TEETH, UNSPECIFIED CAUSE, UNSPECIFIED CLASS Status: Acute Priority: High Qualifiers: Tooth loss class: unspecified tooth loss Qualified Code(s): K08.409 - Partial loss of teeth, unspecified cause, unspecified class - Patient Summary/Data Consults: Consultations 10/13/20 19:55 Consult to Case Management/Councilperson [CONS] Routine Consult to Certified Alcohol Counselor [CONS] Routine Respiratory Care Assess and Treatment [CONS] Routine Labs Pending at D/C: None Recommended Follow-up Testing/Procedures: Follow-up with primary care provider within 5-7 days of discharge, sooner if needed. Hospital Course: This is a 89-year-old male who [facility] ED [facility]. Patient was reportedly hospitalized in [place] and found to have several infected teeth with abscesses noted below them. He was given IV antibiotics and referred urgently to dentistry for tooth extraction. He reports he had these teeth out but since then his face has been getting worse. He was on p.o. Augmentin but has not taken much of this. He was started on IV vancomycin and Zosyn while here. His pain was controlled prior to discharge. He was on Naprosyn 500 mg twice daily for inflammation scheduled and he will be discharged on OTC as needed Motrin. Blood cultures have remained negative. On admission bilirubin was noted to be 1.8 and this did increase to 2.0. He was also noted to have mild transaminitis. Is believed this is likely worsened by his medications. He will be discharged on 500 mg p.o. every 6 hour Keflex and 100 mg twice daily doxycycline p.o. His first dose of each were provided here. He was given a note for work and may return unrestricted to his work [place] the [place] on 10/20/2020. He was instructed to return the emergency room or contact his primary care provider should symptoms return or worsen. He was made aware that the symptoms would include worsening swelling, drainage, vision changes, fevers, or pain. Overall his facial infection improved dramatically. Instructed to follow-up with his [facility] care provider within 5 to 7 days of discharge, sooner if needed. Recommend repeat CBC, CMP, and magnesium at that visit. Recommend regular dental checkups. Discharged home today. - Patient Instructions Diet: Usual Diet as Tolerated Activity: As Tolerated Driving: Do Not Drive Showering/Bathing: May Shower Notify Provider of: Fever, Increased Pain, Nausea and/or Vomiting Other/Special Instructions: Follow-up with primary care provider within 5-7 days of discharge, sooner if needed. You were prescribed tow antibioitoics for your facial infection. One is twice a day and one is 4 times a day. Take these as prescribed until you run out. Utilize motrin as needed for pain. Should symptoms return or worsen contact primary care provider or return to the Emergency Department. - Discharge Plan *PRESCRIPTION DRUG MONITORING PROGRAM REVIEWED*: No *COPY OF PRESCRIPTION DRUG MONITORING REPORT IN PATIENT CHRISTIAN: No Prescriptions/Med Rec: cephALEXin [Keflex] 500 mg PO Q6HR #22 cap Doxycycline [Vibramycin] 100 mg PO BID #11 cap Home Medications: Home Meds Doxycycline [Vibramycin] 100 mg PO BID #11 cap 10/17/20 [Rx] cephALEXin [Keflex] 500 mg PO Q6HR #22 cap 10/17/20 [Rx] Oxygen Therapy Mode: Room Air Patient Handouts: Sepsis, Diagnosis, Adult Forms: ED Department Discharge Referrals: Scar Quick MD [Primary Care Provider] - 10/23/20 1:45 pm (Hospital follow-up appointment.) - Discharge Summary/Plan Comment DC Time >30 min.: Yes (45 mins ) - General Info Date of Service: 10/17/20 Admission Dx/Problem (Free Text: Admission Diagnosis/Problem Admission Diagnosis/Problem Cellulitis and abscess of face Functional Status: Reports: Pain Controlled, Tolerating Diet, Ambulating, Urinating. Denies: New Symptoms - Review of Systems General: Reports: No Symptoms. Denies: Fever, Weakness, Fatigue, Malaise, Chills HEENT: Reports: No Symptoms. Denies: Headaches, Sore Throat Pulmonary: Reports: No Symptoms. Denies: Shortness of Breath, Pleuritic Chest Pain, Cough, Sputum, Wheezing Cardiovascular: Reports: No Symptoms. Denies: Chest Pain, Palpitations, Dyspnea on Exertion Gastrointestinal: Reports: No Symptoms. Denies: Abdominal Pain, Constipation, Diarrhea, Nausea, Vomiting Genitourinary: Reports: No Symptoms. Denies: Pain Musculoskeletal: Reports: No Symptoms Skin: Reports: No Symptoms. Denies: Cyanosis Neurological: Reports: No Symptoms. Denies: Confusion, Pre-Existing Deficit, Difficulty Walking, Gait Disturbance Psychiatric: Reports: No Symptoms - Patient Data Vitals - Most Recent: Last Vital Signs Temp 97.7 F 10/17/20 07:58 Pulse 64 10/17/20 07:58 Resp 16 10/17/20 07:58 BP 149/84 H 10/17/20 07:58 Pulse Ox 100 10/17/20 07:58 Weight - Most Recent: 265 lb 4.8 oz I&O - Last 24 hours: Intake & Output 10/16/20 10/17/20 10/17/20 22:59 06:59 14:59 Intake Total 2900 1800 Balance 2900 1800 Lab Results - Last 24 hrs: Laboratory Results - last 24 hr 10/16/20 10/17/20 10/17/20 Range/Units 07:42 07:22 07:22 WBC 10.03 H (4.23-9.07) K/mm3 RBC 5.88 (4.63-6.08) M/mm3 Hgb 11.3 L (13.7-17.5) gm/dl Hct 35.8 L (40.1-51.0) % MCV 60.9 L (79.0-92.2) fl MCH 19.2 L (25.7-32.2) pg MCHC 31.6 L (32.2-35.5) g/dl RDW Std Deviation 34.8 L (35.1-43.9) fL Plt Count 319 (163-337) K/mm3 MPV 10.6 (9.4-12.3) fl Neut % (Auto) 66.8 (34.0-67.9) % Lymph % (Auto) 20.3 L (21.8-53.1) % [place] % (Auto) 8.6 (5.3-12.2) % Eos % (Auto) 3.2 (0.8-7.0) Baso % (Auto) 0.5 (0.1-1.2) % Neut # (Auto) 6.70 H (1.78-5.38) K/mm3 Lymph # (Auto) 2.04 (1.32-3.57) K/mm3 [place] # (Auto) 0.86 H (0.30-0.82) K/mm3 Eos # (Auto) 0.32 (0.04-0.54) K/mm3 Baso # (Auto) 0.05 (0.01-0.08) K/mm3 Manual Slide Review Abnormal smear Sodium 148 H (136-145) mEq/L Potassium 4.2 (3.5-5.1) mEq/L Chloride 110 H (98-107) mEq/L Carbon Dioxide 27 (21-32) mEq/L Anion Gap 15.2 H (5-15) BUN 10 (7-18) mg/dL Creatinine 1.2 (0.7-1.3) mg/dL Est Cr Clr Drug Dosing 91.61 mL/min Estimated GFR (MDRD) > 60 (>60) mL/min BUN/Creatinine Ratio 8.3 L (14-18) Glucose 94 (74-106) mg/dL Hemoglobin A1c 5.5 ( - 5.6) % Calcium 8.3 L (8.5-10.1) mg/dL Magnesium 2.2 (1.8-2.4) mg/dl Total Bilirubin 2.0 H (0.2-1.0) mg/dL AST 36 (15-37) U/L ALT 76 H (16-63) U/L Alkaline Phosphatase 44 L (46-116) U/L C-Reactive Protein 0.5 (<1.0) mg/dL Total Protein 7.0 (6.4-8.2) g/dl Albumin 3.7 (3.4-5.0) g/dl Globulin 3.3 gm/dL Albumin/Globulin Ratio 1.1 (1-2) ELIEZER Results - Last 24 hrs: Microbiology 10/13/20 14:47 Aerobic Blood Culture - Preliminary Blood - Venous - Lab Draw NO GROWTH AFTER 3 DAYS Anaerobic Blood Culture - Preliminary NO GROWTH AFTER 3 DAYS 10/13/20 14:40 Aerobic Blood Culture - Preliminary Blood - Venous NO GROWTH AFTER 3 DAYS Anaerobic Blood Culture - Preliminary NO GROWTH AFTER 3 DAYS Med Orders - Current: Current Medications Acetaminophen (Tylenol) 650 mg RECTAL Q4H PRN PRN Reason: Pain (mild 1-3) Hydrocodone Bitart/Acetaminophen (Daniel 325-5 Mg) 2 tab PO Q4H PRN PRN Reason: Pain (moderate 4-6) Last Admin: 10/15/20 18:24 Dose: 2 tab Documented by: Albuterol/Ipratropium (Duoneb 3.0-0.5 Mg/3 Ml) 3 ml NEB Q4H PRN PRN Reason: Shortness Of Breath/wheezing Enoxaparin Sodium (Lovenox) 40 mg SUBCUT DAILY [facility] Last Admin: 10/17/20 08:21 Dose: 40 mg Documented by: Famotidine (Pepcid) 20 mg PO BID [facility] Last Admin: 10/17/20 08:21 Dose: 20 mg Documented by: Hydromorphone HCl (Dilaudid) 0.5 mg IVPUSH Q2H PRN PRN Reason: Pain (severe 7-10) Last Admin: 10/14/20 00:42 Dose: 0.5 mg Documented by: Promethazine HCl 12.5 mg/ (Sodium Chloride) 50.5 mls @ 100 mls/hr IV Q6H PRN PRN Reason: Nausea/Vomiting Piperacillin Sod/Tazobactam (Sod 4.5 gm/ Sodium Chloride) 100 mls @ 25 mls/hr IV Q8H [facility] Last Admin: 10/17/20 06:46 Dose: 25 mls/hr Documented by: Vancomycin HCl 1 gm/Vancomycin HCl 500 mg/ Sodium Chloride 500 mls @ 250 mls/hr IV Q8H [facility] Last Admin: 10/17/20 06:47 Dose: 250 mls/hr Documented by: Ketorolac Tromethamine (Toradol) 30 mg IVPUSH Q6H PRN PRN Reason: Pain (moderate 4-6) Stop: 10/22/20 15:01 Naproxen (Naprosyn) 500 mg PO Q12HR [facility] Stop: 10/17/20 09:01 Last Admin: 10/17/20 08:21 Dose: 500 mg Documented by: Ondansetron HCl (Zofran) 4 mg IV Q6H PRN PRN Reason: Nausea/Vomiting Polyethylene Glycol (Miralax) 17 gm PO DAILY PRN PRN Reason: Constipation Senna/Docusate Sodium (Senna Plus) 1 tab PO BID PRN PRN Reason: Constipation Sodium Chloride (Saline Flush) 10 ml FLUSH ASDIRECTED PRN PRN Reason: Keep Vein Open Last Admin: 10/13/20 15:22 Dose: 10 ml Documented by: Sodium Chloride (Saline Flush) 10 ml FLUSH ONETIME PRN PRN Reason: IV FLUSH Last Admin: 10/13/20 15:11 Dose: 10 ml Documented by: Temazepam (Restoril) 15 mg PO BEDTIME PRN PRN Reason: Sleep Last Admin: 10/14/20 00:41 Dose: 15 mg Documented by: Discontinued Medications Hydromorphone HCl (Dilaudid) 0.5 mg IVPUSH ONETIME ONE Stop: 10/13/20 14:16 Last Admin: 10/13/20 15:10 Dose: Not Given Documented by: Hydromorphone HCl (Dilaudid) 1 mg IM ONETIME ONE Stop: 10/13/20 14:40 Last Admin: 10/13/20 14:43 Dose: 1 mg Documented by: Hydromorphone HCl (Dilaudid) 0.5 mg IVPUSH ONETIME ONE Stop: 10/13/20 18:46 Last Admin: 10/13/20 18:49 Dose: 0.5 mg Documented by: Sodium Chloride (Normal Saline) 1,000 mls @ 100 mls/hr IV NOW STA Stop: 10/14/20 00:14 Last Admin: 10/13/20 15:21 Dose: 100 mls/hr Documented by: Piperacillin Sod/Tazobactam (Sod 4.5 gm/ Sodium Chloride) 100 mls @ 200 mls/hr IV ONETIME ONE Stop: 10/13/20 16:59 Last Admin: 10/13/20 16:35 Dose: 200 mls/hr Documented by: Vancomycin HCl 2 gm/ Sodium (Chloride) 500 mls @ 250 mls/hr IV ONETIME ONE Stop: 10/13/20 18:59 Last Admin: 10/13/20 17:09 Dose: 250 mls/hr Documented by: Vancomycin HCl 1 gm/ Sodium (Chloride) 250 mls @ 250 mls/hr IV Q12H [facility] Piperacillin Sod/Tazobactam (Sod 4.5 gm/ Sodium Chloride) 100 mls @ 25 mls/hr IV Q8H [facility] Vancomycin HCl 1.75 gm/ Sodium (Chloride) 500 mls @ 250 mls/hr IV Q8H [facility] Last Admin: 10/14/20 00:41 Dose: 250 mls/hr Documented by: Vancomycin HCl 1.75 gm/ Sodium (Chloride) 500 mls @ 250 mls/hr IV Q8H [facility] Last Admin: 10/16/20 04:04 Dose: 250 mls/hr Documented by: Vancomycin HCl 1 gm/Vancomycin HCl 500 mg/ Sodium Chloride 500 mls @ 250 mls/hr IV Q8H [facility] Last Admin: 10/16/20 09:05 Dose: Not Given Documented by: Ibuprofen (Motrin) 400 mg PO Q6H PRN PRN Reason: Pain (mild 1-3) Iopamidol (Isovue-300 (61%)) 100 ml IVPUSH ONETIME ONE Stop: 10/13/20 14:52 Last Admin: 10/13/20 15:11 Dose: 100 ml Documented by: Naproxen (Naprosyn) 500 mg PO ONETIME ONE Stop: 10/13/20 20:02 Last Admin: 10/13/20 20:26 Dose: 500 mg Documented by: Ondansetron HCl (Zofran) 4 mg IVPUSH ONETIME ONE Stop: 10/13/20 14:16 Last Admin: 10/13/20 15:09 Dose: Not Given Documented by: Piperacillin Sod/Tazobactam Sod (Piperacil-Tazobact) Confirm Administered Dose 4.5 gm .ROUTE .STK-MED ONE Stop: 10/16/20 12:07 Last Admin: 10/16/20 12:29 Dose: Not Given Documented by: Vancomycin HCl (Pharmacy To Dose - Vancomycin) 0 dose .XX ONETIME ONE Stop: 10/13/20 16:32 Last Admin: 10/13/20 17:23 Dose: Not Given Documented by: Vancomycin HCl (Pharmacy To Dose - Vancomycin) 0 dose .XX ONETIME ONE Stop: 10/13/20 21:01 Last Admin: 10/14/20 12:28 Dose: Not Given Documented by: - Exam Quality Assessment: Reports: DVT Prophylaxis. Denies: Supplemental Oxygen, Urine Catheter General: Reports: Alert, Oriented, Cooperative, No Acute Distress HEENT: Reports: Pupils Equal, Pupils Reactive, Mucous Membr. Moist/[place], Other (Dramatic improvement in patient's swelling on left side of his face. Blisters have all appeared to crust over and there is no current drainage. His left eye is noted to be able to open nearly entirely. Mouth is able to close. He reports pain is very well controlled.) Neck: Reports: Supple, Trachea Midline Lungs: Reports: Clear to Auscultation, Normal Respiratory Effort Cardiovascular: Reports: Regular Rate, Regular Rhythm GI/Abdominal Exam: Normal Bowel Sounds, Soft, Non-Tender, No Distention (Male) Exam: Deferred Rectal (Males) Exam: Deferred Back Exam: Reports: Normal Inspection, Full Range of Motion Extremities: Normal Inspection, Normal Range of Motion, Non-Tender, No Pedal Edema, Normal Capillary Refill Skin: Reports: Warm, Dry, Intact Wound/Incisions: Reports: Healing Well, No Drainage, Erythema Improving Neurological: Reports: No New Focal Deficit Psy/Mental Status: Reports: Alert, Normal Affect, Normal Mood
[2020-10-17] MEDS ORDERED: Ketorolac 30 MG/ML SDV IVPUSH PRN (15:00)
== END 2020-10-17 12:06 | disposition home or self-care (01) | DRG 383 ==
LOC: JD.ED 13:43 → JD.MS 17:27
PROVIDERS: ADMIT Internal Medicine; ATTEND Internal Medicine
DX: L03.211 Cellulitis of face (principal); K04.7 Periapical abscess without sinus; Z20.822 Contact with and (suspected) exposure to COVID-19; D64.9 Anemia, unspecified; E80.6 Other disorders of bilirubin metabolism; E66.9 Obesity, unspecified; K08.409 Partial loss of teeth, unspecified cause, unspecified class; R74.8 Abnormal levels of other serum enzymes; Z87.891 Personal history of nicotine dependence; Z88.1 Allergy status to other antibiotic agents
CPT/HCPCS: 36415; 70487; 70487-26; 80048; 80053; 80202; 83036; 83605; 83735; 85025; 86140; 87040; 96365; 96372; 96375; 99221; 99232; 99239; 99284; 99284-25; A9270-GY; J1170; J1650; J2543; J3370; J7030; J7040; Q9967; U0002